=== PATIENT | male | born 1985 | race Caucasian/White ===

== ENCOUNTER → 2016-06-13 | Outpatient (REF) | payer OTHER | LOC: M SMT 13:01 | PROVIDERS: ATTEND Nurse Practitioner Women's Health | DX: N50.819 Testicular pain, unspecified (principal) ==

== ENCOUNTER 2016-06-28 14:09 | Emergency (ER) | payer OTHER ==
--- NOTE | 2016-06-28 15:59 | EDDOCDS ---
Physician Documentation [facility] Name: Will Roman Age: 30 yrs Sex: Male : 1985 Arrival Date: 06/28/2016 Time: 14:09 Bed TR7 Private MD: Fantasma Disposition: 06/28/16 15:48 Discharged to Home/Self Care. Impression: Cervical disc disorder with radiculopathy, unspecified cervical region - AFFECTING LEFT FINGERS. - Condition is Stable. - Discharge Instructions: Cervical Radiculopathy. - Prescriptions for Mobic 7.5 mg Oral Tablet - take 1 tablet by ORAL route once daily take with food; 20 tablet. - Medication Reconciliation, Local Pharmacy Hours form. - Follow up: Emergency Department; When: As needed; Reason: Worsening of conditions. Follow up: Private Physician; When: 2 - 3 days; Reason: Wound/Symptom Recheck, Recheck today's complaints, Continuance of care. - Problem is new. - Symptoms are unchanged. Historical: - Allergies: Ceclor; - Home Meds: 1. none - PMHx: Anxiety; - PSHx: Appendectomy; - Social history: Smoking status: Patient uses tobacco products, current some day smoker. No barriers to communication noted, The patient speaks fluent Occitan, Speaks appropriately for age. - Family history: Not pertinent. - : The pt / caregiver states he / she is not on anticoagulants. Home medication list is obtained from the patient. - Exposure Risk Screening:: None identified. Vital Signs: 06/28 14:12 BP 163 / 85; Pulse 61; Resp 18; Pulse Ox 99% on R/A; Weight 90.72 kg / 200 lbs (R); elp Height 5 ft. 10 in. (177.80 cm) (R); Pain 0/10; 14:12 Body Mass Index 28.70 (90.72 kg, 177.80 cm) elp MDM: 15:33 ECG WITH READING ER PHYS+CARDIAG ordered. EDMS 15:43 ED course: PT STATES HX OF FEW DAYS OF LEFT "FINGER TINGLING" AND LEFT UPPER ARM dt4 "TIGHTNESS" THAT LASTED FOR A FEW MINUTES. STATES HX OF ANXIETY AND HAD AN ANXIETY ATTACK THE FIRST NIGHT HE NOTICED THESE SYMPTOMS. . 15:55 Financial registration complete. lg Signatures: Dispatcher [employer] EDSergio Peck Reg Reg lg Tish-Krish,Radha,RN RN ck1 Jaymie Zhang,RN RN cjh Pallavi Celestin PA-C PA-C dt4 MTDD
--- NOTE | 2016-06-28 15:59 | EDDOCDS ---
Nurse's Notes [facility] Name: Will Roman Age: 30 yrs Sex: Male : 1985 Arrival Date: 06/28/2016 Time: 14:09 Bed TR7 Private MD: Fantasma Diagnosis: Cervical disc disorder with radiculopathy, unspecified cervical region-AFFECTING LEFT FINGERS Presentation: 06/28 14:17 Presenting complaint: Patient states: tingling to left hand with tightness to left arm. ck1 Reports short episode of left chest pain 3 nights ago, states "anxiety attack" at the time. Adult Sepsis Screening: The patient does not have new or worsening altered mentation. Patient's respiratory rate is less than 22. Systolic blood pressure is greater than 100. Patient has a qSOFA score of 0- Negative Sepsis Screen. Suicide/Homicide risk assessment- the patient denies having any suicidal and/or homicidal ideations and does not present with any other emotional, behavioral or mental health complaints. Status: Patient is not a clinical services assistant or dependent. Transition of care: patient was not received from another setting of care. 14:17 Acuity: JOEY Level 4 ck1 14:17 Method Of Arrival: Walkin/Carried/Asstd ck1 Triage Assessment: 14:20 General: Appears in no apparent distress, comfortable, Behavior is appropriate for age, ck1 cooperative. Pain: Denies pain. HIV screening NA for this visit Offered previously. Neurological: Level of Consciousness is awake, alert, obeys commands, Oriented to person, place, time. Cardiovascular: Chest pain is denied. Respiratory: No deficits noted. Derm: Skin is intact, is healthy with good turgor, Skin is pink, warm & dry. Musculoskeletal: Range of motion intact in all extremities. Historical: - Allergies: Ceclor; - Home Meds: 1. none - PMHx: Anxiety; - PSHx: Appendectomy; - Social history: Smoking status: Patient uses tobacco products, current some day smoker. No barriers to communication noted, The patient speaks fluent Pashto, Speaks appropriately for age. - Family history: Not pertinent. - : The pt / caregiver states he / she is not on anticoagulants. Home medication list is obtained from the patient. - Exposure Risk Screening:: None identified. Screenin:54 Screening information is obtained from the patient. Fall risk: No risks identified. cj Assistance ADL's: requires no assistance with activities of daily living. Abuse/DV Screen: The patient / caregiver reports he/she is: not in a situation that causes fear, pain or injury. Nutritional screening: No deficits noted. Advance Directives: There is no active DNR order. home support is adequate. Assessment: 15:54 General: Appears in no apparent distress, comfortable, Behavior is appropriate for age, cjh cooperative, assessed by PA. Reviewed discharge instructions with patient, encouraged and answered questions, patient denies further needs. Neurological: Level of Consciousness is awake, alert, Oriented to person, place, time. Respiratory: Airway is patent Respiratory effort is even, unlabored, Respiratory pattern is regular, symmetrical. Derm: Skin is pink, warm & dry. Vital Signs: 14:12 BP 163 / 85; Pulse 61; Resp 18; Pulse Ox 99% on R/A; Weight 90.72 kg (R); Height 5 ft. elp 10 in. (177.80 cm) (R); Pain 0/10; 14:12 Body Mass Index 28.70 (90.72 kg, 177.80 cm) [facility] Vitals: 14:12 Log In Time: June 28, 2016 at 14:10. [facility] ED Course: 14:11 Patient visited by Juliana Schultz PCA. elp 14:11 Fantasma is Private Physician. elp 14:11 Patient moved to Waiting elp 14:12 Patient visited by Juliana Schultz PCA. elp 14:12 Patient moved to Pre RCE gr2 14:19 Triage Initiated ck1 14:58 Patient moved to Triage 3 mlb1 15:11 Pallavi Celestin PA-C [facility]. dt4 15:11 Nahid Parrish MD is Attending Physician. dt4 15:11 Patient visited by Pallavi Celestin PA-C. dt4 15:45 Patient visited by Cristiana Mcknight PCA. rs6 15:45 EKG done. (by ED staff). Reviewed by Pallavi Celestin PA-C. rs6 15:54 The patient / caregiver is instructed regarding the plan of care and ED course. cjh 15:54 No IV's were initiated during this patient's visit. No procedures done that require [facility] assistance. 15:55 Patient moved to TR7 rs6 Order Results: There are currently no results for this order. Outcome: 15:48 Discharge ordered by Provider. dt4 15:54 Discharge Assessment: Patient awake, alert and oriented x 3. No cognitive and/or [facility] functional deficits noted. Patient verbalized understanding of disposition instructions. patient administered narcotics - no. The following High Risk Discharge criteria are identified: None. Discharged to home ambulatory. Condition: good Condition: stable. Discharge instructions given to patient, Instructed on discharge instructions, follow up and referral plans. medication usage, Demonstrated understanding of instructions, medications, Pt was receptive of discharge instructions/ teaching. Prescriptions given X 1. No special radiology studies were completed. Property :Personal belongings accompany Pt. 15:58 [facility]. [facility] Signatures: Elder Mercer RN RN mlb1 Radha Anne,RN RN ck1 Jaymie ZhangRN RN [facility] Faustino Cadena gr2 Juliana Schultz, [employer] SERVICES FIELD SUPERVISOR O[employer] WELL SERVICES FIELD SUPERVISOR elp Pallavi Celestin PA-C PA-C dt4 Cristiana Mcknight, [employer] WELL SERVICES FIELD SUPERVISOR OIL WELL SERVICES FIELD SUPERVISOR rs6 BELLD
--- NOTE | 2016-06-29 08:31 | ECGEPIP ---
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
--- NOTE | 2016-06-30 16:59 | EDDOCDS ---
Physician Documentation [facility] Name: Will Roman Age: 30 yrs Sex: Male : 1985 Arrival Date: 06/28/2016 Time: 14:09 Bed TR7 Private MD: Fantasma Disposition: 06/28/16 15:48 Discharged to Home/Self Care. Impression: Cervical disc disorder with radiculopathy, unspecified cervical region - AFFECTING LEFT FINGERS. - Condition is Stable. - Discharge Instructions: Cervical Radiculopathy. - Prescriptions for Mobic 7.5 mg Oral Tablet - take 1 tablet by ORAL route once daily take with food; 20 tablet. - Medication Reconciliation, Local Pharmacy Hours form. - Follow up: Emergency Department; When: As needed; Reason: Worsening of conditions. Follow up: Private Physician; When: 2 - 3 days; Reason: Wound/Symptom Recheck, Recheck today's complaints, Continuance of care. - Problem is new. - Symptoms are unchanged. Historical: - Allergies: Ceclor; - Home Meds: 1. none - PMHx: Anxiety; - PSHx: Appendectomy; - Social history: Smoking status: Patient uses tobacco products, current some day smoker. No barriers to communication noted, The patient speaks fluent Malay, Speaks appropriately for age. - Family history: Not pertinent. - : The pt / caregiver states he / she is not on anticoagulants. Home medication list is obtained from the patient. - Exposure Risk Screening:: None identified. Vital Signs: 06/28 14:12 BP 163 / 85; Pulse 61; Resp 18; Pulse Ox 99% on R/A; Weight 90.72 kg / 200 lbs (R); elp Height 5 ft. 10 in. (177.80 cm) (R); Pain 0/10; 14:12 Body Mass Index 28.70 (90.72 kg, 177.80 cm) elp MDM: 15:33 ECG WITH READING ER PHYS+CARDIAG ordered. EDMS 15:43 ED course: PT STATES HX OF FEW DAYS OF LEFT "FINGER TINGLING" AND LEFT UPPER ARM dt4 "TIGHTNESS" THAT LASTED FOR A FEW MINUTES. STATES HX OF ANXIETY AND HAD AN ANXIETY ATTACK THE FIRST NIGHT HE NOTICED THESE SYMPTOMS. . 15:55 Financial registration complete. lg 06/29 09:04 [facility] Payment Agreement was scanned into [employer] and attached to record. lg 11:30 T-Sheet-- Draft Copy was scanned into [employer] and attached to record. gb Signatures: Dispatcher [employer] EDMS Ailyn Smith, Reg Reg gb Sergio James, Reg Reg lg Tish-Radha Rutherford,RN RN ck1 Jaymie Zhang,RN RN [facility] Pallavi Celestin PA-C PA-C dt4 The chart was reviewed and I authenticate all verbal orders and agree with the evaluation and treatment provided.Attachments: 09:04 [facility] Payment Agreement lg 11:30 T-Sheet-- Draft Copy gb Chart Complete MTDD
--- NOTE | 2016-06-30 16:59 | EDDOCDS ---
Physician Documentation [facility] Name: Will Roman Age: 30 yrs Sex: Male : 1985 Arrival Date: 06/28/2016 Time: 14:09 Bed TR7 Private MD: Fantasma Disposition: 06/28/16 15:48 Discharged to Home/Self Care. Impression: Cervical disc disorder with radiculopathy, unspecified cervical region - AFFECTING LEFT FINGERS. - Condition is Stable. - Discharge Instructions: Cervical Radiculopathy. - Prescriptions for Mobic 7.5 mg Oral Tablet - take 1 tablet by ORAL route once daily take with food; 20 tablet. - Medication Reconciliation, Local Pharmacy Hours form. - Follow up: Emergency Department; When: As needed; Reason: Worsening of conditions. Follow up: Private Physician; When: 2 - 3 days; Reason: Wound/Symptom Recheck, Recheck today's complaints, Continuance of care. - Problem is new. - Symptoms are unchanged. Historical: - Allergies: Ceclor; - Home Meds: 1. none - PMHx: Anxiety; - PSHx: Appendectomy; - Social history: Smoking status: Patient uses tobacco products, current some day smoker. No barriers to communication noted, The patient speaks fluent Bulgarian, Speaks appropriately for age. - Family history: Not pertinent. - : The pt / caregiver states he / she is not on anticoagulants. Home medication list is obtained from the patient. - Exposure Risk Screening:: None identified. Vital Signs: 06/28 14:12 BP 163 / 85; Pulse 61; Resp 18; Pulse Ox 99% on R/A; Weight 90.72 kg / 200 lbs (R); elp Height 5 ft. 10 in. (177.80 cm) (R); Pain 0/10; 14:12 Body Mass Index 28.70 (90.72 kg, 177.80 cm) elp MDM: 15:33 ECG WITH READING ER PHYS+CARDIAG ordered. EDMS 15:43 ED course: PT STATES HX OF FEW DAYS OF LEFT "FINGER TINGLING" AND LEFT UPPER ARM dt4 "TIGHTNESS" THAT LASTED FOR A FEW MINUTES. STATES HX OF ANXIETY AND HAD AN ANXIETY ATTACK THE FIRST NIGHT HE NOTICED THESE SYMPTOMS. . 15:55 Financial registration complete. lg 06/29 09:04 [facility] Payment Agreement was scanned into [employer] and attached to record. lg 11:30 T-Sheet-- Draft Copy was scanned into [employer] and attached to record. gb Signatures: Dispatcher [employer] EDMS Ailyn Smith, Reg Reg gb Sergio James, Reg Reg lg Tish-Radha Rutherford,RN RN ck1 Jaymie Zhang,RN RN [facility] Pallavi Celestin PA-C PA-C dt4 The chart was reviewed and I authenticate all verbal orders and agree with the evaluation and treatment provided.Attachments: 09:04 [facility] Payment Agreement lg 11:30 T-Sheet-- Draft Copy gb Chart Complete MTDD
--- NOTE | 2016-06-30 16:59 | EDDOCDS ---
Nurse's Notes [facility] Name: Nila Rosenberg Age: 30 yrs Sex: Male : 1985 Arrival Date: 06/28/2016 Time: 14:09 Bed TR7 Private MD: Fantasma Diagnosis: Cervical disc disorder with radiculopathy, unspecified cervical region-AFFECTING LEFT FINGERS Presentation: 06/28 14:17 Presenting complaint: Patient states: tingling to left hand with tightness to left arm. ck1 Reports short episode of left chest pain 3 nights ago, states "anxiety attack" at the time. Adult Sepsis Screening: The patient does not have new or worsening altered mentation. Patient's respiratory rate is less than 22. Systolic blood pressure is greater than 100. Patient has a qSOFA score of 0- Negative Sepsis Screen. Suicide/Homicide risk assessment- the patient denies having any suicidal and/or homicidal ideations and does not present with any other emotional, behavioral or mental health complaints. Status: Patient is not a room service runner or dependent. Transition of care: patient was not received from another setting of care. 14:17 Acuity: JOEY Level 4 ck1 14:17 Method Of Arrival: Walkin/Carried/Asstd ck1 Triage Assessment: 14:20 General: Appears in no apparent distress, comfortable, Behavior is appropriate for age, ck1 cooperative. Pain: Denies pain. HIV screening NA for this visit Offered previously. Neurological: Level of Consciousness is awake, alert, obeys commands, Oriented to person, place, time. Cardiovascular: Chest pain is denied. Respiratory: No deficits noted. Derm: Skin is intact, is healthy with good turgor, Skin is pink, warm & dry. Musculoskeletal: Range of motion intact in all extremities. Historical: - Allergies: Ceclor; - Home Meds: 1. none - PMHx: Anxiety; - PSHx: Appendectomy; - Social history: Smoking status: Patient uses tobacco products, current some day smoker. No barriers to communication noted, The patient speaks fluent Greenlandic, Speaks appropriately for age. - Family history: Not pertinent. - : The pt / caregiver states he / she is not on anticoagulants. Home medication list is obtained from the patient. - Exposure Risk Screening:: None identified. Screenin:54 Screening information is obtained from the patient. Fall risk: No risks identified. cj Assistance ADL's: requires no assistance with activities of daily living. Abuse/DV Screen: The patient / caregiver reports he/she is: not in a situation that causes fear, pain or injury. Nutritional screening: No deficits noted. Advance Directives: There is no active DNR order. home support is adequate. Assessment: 15:54 General: Appears in no apparent distress, comfortable, Behavior is appropriate for age, cjh cooperative, assessed by PA. Reviewed discharge instructions with patient, encouraged and answered questions, patient denies further needs. Neurological: Level of Consciousness is awake, alert, Oriented to person, place, time. Respiratory: Airway is patent Respiratory effort is even, unlabored, Respiratory pattern is regular, symmetrical. Derm: Skin is pink, warm & dry. Vital Signs: 14:12 BP 163 / 85; Pulse 61; Resp 18; Pulse Ox 99% on R/A; Weight 90.72 kg (R); Height 5 ft. elp 10 in. (177.80 cm) (R); Pain 0/10; 14:12 Body Mass Index 28.70 (90.72 kg, 177.80 cm) [facility] Vitals: 14:12 Log In Time: June 28, 2016 at 14:10. [facility] ED Course: 14:11 Patient visited by Juliana Schultz PCA. elp 14:11 Fantasma is Private Physician. elp 14:11 Patient moved to Waiting elp 14:12 Patient visited by Juliana Schultz PCA. elp 14:12 Patient moved to Pre RCE gr2 14:19 Triage Initiated ck1 14:58 Patient moved to Triage 3 mlb1 15:11 Pallavi Celestin PA-C [facility]. dt4 15:11 Nahid Parrish MD is Attending Physician. dt4 15:11 Patient visited by Pallavi Celestin PA-C. dt4 15:45 Patient visited by Cristiana Mcknight PCA. rs6 15:45 EKG done. (by ED staff). Reviewed by Pallavi Celestin PA-C. rs6 15:54 The patient / caregiver is instructed regarding the plan of care and ED course. cjh 15:54 No IV's were initiated during this patient's visit. No procedures done that require [facility] assistance. 15:55 Patient moved to TR7 rs6 01/19 08:35 Patient name changed from Nila\\Eunice\\Gerardo\\S\\Jessie\\S\\ to Nila\\Eunice\\Ezra\\Eunice\\Jessie. EDMS 09:01 EKG-ADULT Returned. EDMS 09:04 [facility] Payment Agreement was scanned into [employer] and attached to record. lg 11:30 T-Sheet-- Draft Copy was scanned into [employer] and attached to record. 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 dt4 15:54 Discharge Assessment: Patient awake, alert and oriented x 3. No cognitive and/or [facility] functional deficits noted. Patient verbalized understanding of disposition instructions. patient administered narcotics - no. The following High Risk Discharge criteria are identified: None. Discharged to home ambulatory. Condition: good Condition: stable. Discharge instructions given to patient, Instructed on discharge instructions, follow up and referral plans. medication usage, Demonstrated understanding of instructions, medications, Pt was receptive of discharge instructions/ teaching. Prescriptions given X 1. No special radiology studies were completed. Property :Personal belongings accompany Pt. 15:58 Patient left the ED. [facility] Signatures: Dispatcher [employer] EDMS Ailyn Smith, Reg Reg gb Sergio James, Reg Reg lg Elder Mercer RN RN mlb1 Radha Anne RN RN ck1 Jaymie ZhangRN RN [facility] Faustino Cadena gr2 Juliana Schultz PCA SEMAPHORE OPERATOR elp Pallavi Celestin, PA-C PA-C dt4 Mcknight, Cristiana, SEMAPHORE OPERATOR SEMAPHORE OPERATOR rs6 Chart Complete MTDD
== END 2016-06-28 15:58 | disposition home or self-care (01) ==
LOC: M ED 14:09
DX: M54.12 Radiculopathy, cervical region (principal); F41.9 Anxiety disorder, unspecified; Z82.49 Family history of ischemic heart disease and other diseases of the circulatory system; Z88.1 Allergy status to other antibiotic agents; F17.210 Nicotine dependence, cigarettes, uncomplicated

== ENCOUNTER → 2016-06-29 | Outpatient (CLI) | payer OTHER ==
--- NOTE | 2016-06-30 03:20 | REP ---
Clinical: Left testicular pain. Technique: Coronado scale and color Doppler evaluation using linear and curved array transducer with color Doppler evaluation. Findings: The testicles and epididymi are relatively normal in contour, size, echogenicity, vascularity and overall appearance/contour. There is no evidence for intratesticular mass lesion, infectious/inflammatory process, with torsion. Incidental note is made of a 2.3 mm right epididymal head cyst. Small bilateral hydroceles are identified (left greater than right) and nonspecific. No obvious varicoceles are identified. Right testicle measures 4.6 x 2.4 x 3.5 cm. Left testicle measures 4.7 x 2.5 x 3.2 cm. Impression: Small bilateral hydroceles and 2.3 mm right epididymal head cyst. Signed by Silas Tellez MD 06/30/2016 03:12 A
== END ==
LOC: M SMT 13:47
PROVIDERS: ATTEND Nurse Practitioner Women's Health
DX: N43.3 Hydrocele, unspecified (principal); N50.3 Cyst of epididymis

== ENCOUNTER 2016-07-17 11:39 | Emergency (ER) | payer OTHER ==
--- NOTE | 2016-07-17 13:05 | REP ---
Left shoulder series: Three views. History: Trauma. Findings: The left glenohumeral and acromioclavicular joints are normally aligned. No erosive change is seen. Periarticular soft tissues are unremarkable. Impression: Negative left shoulder views. Signed by Lupillo Coker MD 07/17/2016 02:35 P
--- NOTE | 2016-07-17 13:24 | EDDOCDS ---
Physician Documentation [facility] Name: Will Roman Age: 30 yrs Sex: Male : 1985 Arrival Date: 07/17/2016 Time: 11:39 Bed I8 / 16 Private MD: Fantasma Disposition: 07/17/16 13:01 Discharged to Home/Self Care. Impression: Pain in left shoulder. - Condition is Stable. - Discharge Instructions: Shoulder Pain. - Medication Reconciliation, Local Pharmacy Hours form. - Follow up: Bruno Rao; When: 2 - 3 days; Reason: Recheck today's complaints. - Problem is new. - Symptoms are unchanged. - Notes: You were seen in the ED for pain in the left shoulder. Xrays showed no acute findings, indication the problem may be soft tissue in nature. You will need to be seen by Orthopedics for further evaluation - please call the number below today to arrange to be seen. Rest and ice the shoulder as needed. You may take Tylenol and Ibuprofen as needed for pain. Return to the ED for any worsening or uncontrolled pain, chest pain, trouble breathing, abdominal pain or any other concerns. Historical: - Allergies: Ceclor; - Home Meds: 1. none - PMHx: Anxiety; - PSHx: Appendectomy; - Social history: Smoking status: Chewing Tobacco No barriers to communication noted, The patient speaks fluent Korean, Speaks appropriately for age. - : The pt / caregiver states he / she is not on anticoagulants. Home medication list is obtained from the patient. - Exposure Risk Screening:: None identified. Vital Signs: 07/17 11:41 BP 131 / 53; Pulse 66; Resp 18; Temp 97.3(O); Pulse Ox 100% on R/A; Weight 90.72 kg / ct3 200 lbs (R); Height 5 ft. 10 in. (177.80 cm) (R); Pain 10/10; 11:41 Body Mass Index 28.70 (90.72 kg, 177.80 cm) ct3 MDM: 12:25 Shoulder, Complete Ordered. EDMS Signatures: Dispatcher [employer] EDMS Daniel Austin MD MD br1 Anitra Cadena RN RN Selena Cervantes RN RN taylor MTDD
--- NOTE | 2016-07-17 13:24 | EDDOCDS ---
Nurse's Notes [facility] Name: Will Roman Age: 30 yrs Sex: Male : 1985 Arrival Date: 07/17/2016 Time: 11:39 Bed I8 / 16 Private MD: Fantasma Diagnosis: Pain in left shoulder Presentation: 07/17 11:50 Presenting complaint: Patient states: pt c/o left shoulder pain, onset of pain ead yesterday morning. denies known injury. reports limited ROM. Adult Sepsis Screening: The patient does not have new or worsening altered mentation. Patient's respiratory rate is less than 22. Systolic blood pressure is greater than 100. Patient has a qSOFA score of 0- Negative Sepsis Screen. Suicide/Homicide risk assessment- the patient denies having any suicidal and/or homicidal ideations and does not present with any other emotional, behavioral or mental health complaints. Status: Patient is not a food services manager or dependent. Transition of care: patient was not received from another setting of care. 11:50 Acuity: JOEY Level 4 ead 11:50 Method Of Arrival: Walkin/Carried/Asstd ead Triage Assessment: 11:52 General: Appears in no apparent distress, Behavior is appropriate for age, cooperative. ead Pain: Location: anterior aspect of left shoulder Pain At worst was 10 out of 10 on a pain scale. HIV screening NA for this visit Offered previously. Respiratory: Airway is patent Respiratory effort is even, unlabored. Derm: Skin is pink, warm & dry. Musculoskeletal: Reports pain in anterior aspect of left shoulder. Historical: - Allergies: Ceclor; - Home Meds: 1. none - PMHx: Anxiety; - PSHx: Appendectomy; - Social history: Smoking status: Chewing Tobacco No barriers to communication noted, The patient speaks fluent Korean, Speaks appropriately for age. - : The pt / caregiver states he / she is not on anticoagulants. Home medication list is obtained from the patient. - Exposure Risk Screening:: None identified. Screenin:19 Screening information is obtained from the patient. Fall risk: No risks identified. jjr Assistance ADL's: requires no assistance with activities of daily living. Abuse/DV Screen: The patient / caregiver reports he/she is: not in a situation that causes fear, pain or injury. Nutritional screening: No deficits noted. Advance Directives: There is no active DNR order. home support is adequate. Assessment: 12:18 General: Appears in no apparent distress, well nourished, well groomed, Behavior is jjr appropriate for age, palpable bump to left biceps movable not tender to the touch, no redness/swelling noted to left arm or shoulder. Musculoskeletal: Range of motion limited in left shoulder Reports pain in anterior aspect of left shoulder. 13:23 General: Appears in no apparent distress. jjr Vital Signs: 11:41 BP 131 / 53; Pulse 66; Resp 18; Temp 97.3(O); Pulse Ox 100% on R/A; Weight 90.72 kg ct3 (R); Height 5 ft. 10 in. (177.80 cm) (R); Pain 10/10; 11:41 Body Mass Index 28.70 (90.72 kg, 177.80 cm) ct3 Vitals: 11:41 Log In Time: July 17, 2016 at 11:38. ct3 ED Course: 11:40 Patient visited by Justyna Guardado PCA. ct3 11:40 Patient moved to Waiting ct3 11:41 Fantasma is Private Physician. ct3 11:42 Patient moved to Pre RCE ct3 11:51 Triage Initiated ead 12:10 Anitra Cadena, RN is Primary Nurse. ml6 12:10 Patient moved to I9 / 22 ml6 12:16 Patient moved to I10 / 23 jmk 12:16 Patient moved to I8 / 16 jmk 12:19 Patient visited by Anitra Cadena, JET. jjr 12:19 The patient / caregiver is instructed regarding the plan of care and ED course. jjr 12:23 Daniel Austin MD is Attending Physician. br1 12:48 Patient visited by Daniel Austin MD. br1 12:59 Bruno Rao is Referral Physician. br1 13:19 Shoulder, Complete Returned. EDMS 13:23 No IV's were initiated during this patient's visit. No procedures done that require jjr assistance. Order Results: Radiology Order: Shoulder, Complete Test: Shoulder, Complete REASON FOR EXAMINATION: Trauma; Left shoulder series: Three views.; ; History: Trauma.; ; Findings: The left glenohumeral and acromioclavicular joints are normally; aligned. No erosive change is seen. Periarticular soft tissues are; unremarkable.; ; Impression:; ; Negative left shoulder views.; ; ; ; ; Unreviewed; Outcome: 13:01 Discharge ordered by Provider. br1 13:23 Discharge Assessment: patient administered narcotics - no. The following High Risk jjr Discharge criteria are identified: None. Discharged to home ambulatory. Condition: stable. Discharge instructions given to patient, Instructed on discharge instructions, follow up and referral plans. Demonstrated understanding of instructions. No special radiology studies were completed. Property sent home with patient. 13:24 Patient left the ED. jjr Signatures: Dispatcher [employer] EDMS Prabhu Lazo,RN RN Daniel Tee MD MD br1 Anitra Cadena RN RN jjr Lowe, Matthew, RN RN ml6 Justyna Guardado, FIRE PILOT FIRE PILOT ct3 Selena Pena RN RN ead MTDD
--- NOTE | 2016-07-19 14:24 | EDDOCDS ---
Physician Documentation [facility] Name: Will Roman Age: 30 yrs Sex: Male : 1985 Arrival Date: 07/17/2016 Time: 11:39 Bed I8 / 16 Private MD: Fantasma Disposition: 07/17/16 13:01 Discharged to Home/Self Care. Impression: Pain in left shoulder. - Condition is Stable. - Discharge Instructions: Shoulder Pain. - Medication Reconciliation, Local Pharmacy Hours form. - Follow up: Bruno Rao; When: 2 - 3 days; Reason: Recheck today's complaints. - Problem is new. - Symptoms are unchanged. - Notes: You were seen in the ED for pain in the left shoulder. Xrays showed no acute findings, indication the problem may be soft tissue in nature. You will need to be seen by Orthopedics for further evaluation - please call the number below today to arrange to be seen. Rest and ice the shoulder as needed. You may take Tylenol and Ibuprofen as needed for pain. Return to the ED for any worsening or uncontrolled pain, chest pain, trouble breathing, abdominal pain or any other concerns. Historical: - Allergies: Ceclor; - Home Meds: 1. none - PMHx: Anxiety; - PSHx: Appendectomy; - Social history: Smoking status: Chewing Tobacco No barriers to communication noted, The patient speaks fluent Italian, Speaks appropriately for age. - : The pt / caregiver states he / she is not on anticoagulants. Home medication list is obtained from the patient. - Exposure Risk Screening:: None identified. Vital Signs: 07/17 11:41 BP 131 / 53; Pulse 66; Resp 18; Temp 97.3(O); Pulse Ox 100% on R/A; Weight 90.72 kg / ct3 200 lbs (R); Height 5 ft. 10 in. (177.80 cm) (R); Pain 10/10; 11:41 Body Mass Index 28.70 (90.72 kg, 177.80 cm) ct3 MDM: 12:25 Shoulder, Complete Ordered. EDMS 13:24 [facility] Payment Agreement was scanned into [employer] and attached to record. jp5 13:24 Financial registration complete. jp5 16:15 T-Sheet-- Draft Copy was scanned into [employer] and attached to record. klr Signatures: Dispatcher [employer] Daniel Aguilar MD MD br1 Anitra Cadnea RN RN Selena CervantesRN RN Aime West jp5 Skyla Vergarar The chart was reviewed and I authenticate all verbal orders and agree with the evaluation and treatment provided.Attachments: 13:24 [facility] Payment Agreement jp5 16:15 T-Sheet-- Draft Copy klr Chart Complete MTDD
--- NOTE | 2016-07-19 14:24 | EDDOCDS ---
Nurse's Notes [facility] Name: Will Roman Age: 30 yrs Sex: Male : 1985 Arrival Date: 07/17/2016 Time: 11:39 Bed I8 / 16 Private MD: Fantasma Diagnosis: Pain in left shoulder Presentation: 07/17 11:50 Presenting complaint: Patient states: pt c/o left shoulder pain, onset of pain ead yesterday morning. denies known injury. reports limited ROM. Adult Sepsis Screening: The patient does not have new or worsening altered mentation. Patient's respiratory rate is less than 22. Systolic blood pressure is greater than 100. Patient has a qSOFA score of 0- Negative Sepsis Screen. Suicide/Homicide risk assessment- the patient denies having any suicidal and/or homicidal ideations and does not present with any other emotional, behavioral or mental health complaints. 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 Transition of care: patient was not received from another setting of care. 11:50 Acuity: JOEY Level 4 ead 11:50 Method Of Arrival: Walkin/Carried/Asstd ead Triage Assessment: 11:52 General: Appears in no apparent distress, Behavior is appropriate for age, cooperative. ead Pain: Location: anterior aspect of left shoulder Pain At worst was 10 out of 10 on a pain scale. HIV screening NA for this visit Offered previously. Respiratory: Airway is patent Respiratory effort is even, unlabored. Derm: Skin is pink, warm & dry. Musculoskeletal: Reports pain in anterior aspect of left shoulder. Historical: - Allergies: Ceclor; - Home Meds: 1. none - PMHx: Anxiety; - PSHx: Appendectomy; - Social history: Smoking status: Chewing Tobacco No barriers to communication noted, The patient speaks fluent Wolof, Speaks appropriately for age. - : The pt / caregiver states he / she is not on anticoagulants. Home medication list is obtained from the patient. - Exposure Risk Screening:: None identified. Screenin:19 Screening information is obtained from the patient. Fall risk: No risks identified. jjr Assistance ADL's: requires no assistance with activities of daily living. Abuse/DV Screen: The patient / caregiver reports he/she is: not in a situation that causes fear, pain or injury. Nutritional screening: No deficits noted. Advance Directives: There is no active DNR order. home support is adequate. Assessment: 12:18 General: Appears in no apparent distress, well nourished, well groomed, Behavior is jjr appropriate for age, palpable bump to left biceps movable not tender to the touch, no redness/swelling noted to left arm or shoulder. Musculoskeletal: Range of motion limited in left shoulder Reports pain in anterior aspect of left shoulder. 13:23 General: Appears in no apparent distress. jjr Vital Signs: 11:41 BP 131 / 53; Pulse 66; Resp 18; Temp 97.3(O); Pulse Ox 100% on R/A; Weight 90.72 kg ct3 (R); Height 5 ft. 10 in. (177.80 cm) (R); Pain 10/10; 11:41 Body Mass Index 28.70 (90.72 kg, 177.80 cm) ct3 Vitals: 11:41 Log In Time: July 17, 2016 at 11:38. ct3 ED Course: 11:40 Patient visited by Justyna Guardado PCA. ct3 11:40 Patient moved to Waiting ct3 11:41 Fantasma is Private Physician. ct3 11:42 Patient moved to Pre RCE ct3 11:51 Triage Initiated ead 12:10 Anitra Cadena, RN is Primary Nurse. ml6 12:10 Patient moved to I9 / 22 ml6 12:16 Patient moved to I10 / 23 jmk 12:16 Patient moved to I8 / 16 jmk 12:19 Patient visited by Anitra Cadena, JET. jjr 12:19 The patient / caregiver is instructed regarding the plan of care and ED course. jjr 12:23 Daniel Austin MD is Attending Physician. br1 12:48 Patient visited by Daniel Austin MD. br1 12:59 Bruno Rao is Referral Physician. br1 13:19 Shoulder, Complete Returned. EDMS 13:23 No IV's were initiated during this patient's visit. No procedures done that require jjr assistance. 13:24 [facility] [place] Agreement was scanned into [employer] and attached to record. jp5 15:35 Patient name changed from Will\S\A\S\Jessie\S\ to Will\S\Gerardo\S\Jessie. [facility] 16:15 T-Sheet-- Draft Copy was scanned into [employer] and attached to record. klr Order Results: Radiology Order: Shoulder, Complete Test: Shoulder, Complete REASON FOR EXAMINATION: Trauma; Left shoulder series: Three views.; ; History: Trauma.; ; Findings: The left glenohumeral and acromioclavicular joints are normally; aligned. No erosive change is seen. Periarticular soft tissues are; unremarkable.; ; Impression:; ; Negative left shoulder views.; ; ; Signed by; Lupillo Coker MD 07/17/2016 02:35 P; Outcome: 13:01 Discharge ordered by Provider. br1 13:23 Discharge Assessment: patient administered narcotics - no. The following High Risk jjr Discharge criteria are identified: None. Discharged to home ambulatory. Condition: stable. Discharge instructions given to patient, Instructed on discharge instructions, follow up and referral plans. Demonstrated understanding of instructions. No special radiology studies were completed. Property sent home with patient. 13:24 Patient left the ED. jjr Signatures: [facility]patcher [facility] ED[facility] Prabhu Lazo,RN RN Daniel Tee MD MD br1 Anitra Cadena, RN RN Chris Thomas, RN RN ml6 Justyna Guardado, RANGE MANAGER RANGE MANAGER ct3 Selena Pena,RN RN Aime West jp5 Skyla Vergara luna Chart Complete MTDD
--- NOTE | 2016-07-19 14:24 | EDDOCDS ---
Physician Documentation [facility] Name: Will Roman Age: 30 yrs Sex: Male : 1985 Arrival Date: 07/17/2016 Time: 11:39 Bed I8 / 16 Private MD: Fantasma Disposition: 07/17/16 13:01 Discharged to Home/Self Care. Impression: Pain in left shoulder. - Condition is Stable. - Discharge Instructions: Shoulder Pain. - Medication Reconciliation, Local Pharmacy Hours form. - Follow up: Bruno Rao; When: 2 - 3 days; Reason: Recheck today's complaints. - Problem is new. - Symptoms are unchanged. - Notes: You were seen in the ED for pain in the left shoulder. Xrays showed no acute findings, indication the problem may be soft tissue in nature. You will need to be seen by Orthopedics for further evaluation - please call the number below today to arrange to be seen. Rest and ice the shoulder as needed. You may take Tylenol and Ibuprofen as needed for pain. Return to the ED for any worsening or uncontrolled pain, chest pain, trouble breathing, abdominal pain or any other concerns. Historical: - Allergies: Ceclor; - Home Meds: 1. none - PMHx: Anxiety; - PSHx: Appendectomy; - Social history: Smoking status: Chewing Tobacco No barriers to communication noted, The patient speaks fluent Macedonian, Speaks appropriately for age. - : The pt / caregiver states he / she is not on anticoagulants. Home medication list is obtained from the patient. - Exposure Risk Screening:: None identified. Vital Signs: 07/17 11:41 BP 131 / 53; Pulse 66; Resp 18; Temp 97.3(O); Pulse Ox 100% on R/A; Weight 90.72 kg / ct3 200 lbs (R); Height 5 ft. 10 in. (177.80 cm) (R); Pain 10/10; 11:41 Body Mass Index 28.70 (90.72 kg, 177.80 cm) ct3 MDM: 12:25 Shoulder, Complete Ordered. EDMS 13:24 [facility] Payment Agreement was scanned into [employer] and attached to record. jp5 13:24 Financial registration complete. jp5 16:15 T-Sheet-- Draft Copy was scanned into [employer] and attached to record. klr Signatures: Dispatcher [employer] Daniel Aguilar MD MD br1 Anitra Cadena RN RN Selena CervantesRN RN Aime West jp5 Skyla Vergarar The chart was reviewed and I authenticate all verbal orders and agree with the evaluation and treatment provided.Attachments: 13:24 [facility] Payment Agreement jp5 16:15 T-Sheet-- Draft Copy klr Chart Complete MTDD
== END 2016-07-17 13:24 | disposition home or self-care (01) ==
LOC: M ED 11:39
DX: M25.512 Pain in left shoulder (principal); F41.9 Anxiety disorder, unspecified; F17.220 Nicotine dependence, chewing tobacco, uncomplicated; Z88.1 Allergy status to other antibiotic agents

== ENCOUNTER → 2016-07-28 | Outpatient (CLI) | payer OTHER ==
--- NOTE | 2016-07-28 15:48 | REP ---
MRI LEFT SHOULDER WITHOUT CONTRAST: 07/28/2016. Comparison: x-ray 07/17/2016. Technique: Sagittal fat suppressed T2, axial MEDIC T2 and fat suppressed T2 with coronal T1 and fat suppressed T2 sequences performed. Clinical history. Shoulder pain. Rule out rotator cuff tear. Findings: The AC joint shows hypertrophic changes but more superiorly than inferiorly only minimal indentation from the AC joint at the musculotendinous junction. There is a larger peripheral acromial spur on the acromion contributing to some bursal surface fraying of the supraspinatus. However, I do not see a full-thickness tear of the supraspinatus tendon retraction of the tendon nor atrophy of its muscle belly. Tiny subchondral cystic area in the greater tuberosity humeral head posteriorly likely related to posterior impingement by the acromion. Tendinosis /tendopathy noted without a tear. The subscapularis tendon is slightly thickened which may reflect some tendinosis/tendinopathy but no tear and no atrophy at the muscle belly. The infraspinatus and teres minor tendons and muscles were intact. No glenohumeral joint effusion. Trace amount of fluid adjacent to the subscapularis. There may be some undermining of the anterior labrum and antrum margin of the superior labrum, but this is difficult to confirm in the absence of a joint effusion. I see no fluid in the subcoracoid bursa. The bony coracoid was intact. The coracoclavicular and coracohumeral ligaments were intact. Spinal glenoid notch shows no fluid collection or mass. Impression: 1. Peripheral acromial spur with bursal surface fraying, tendinosis/tendinopathy of the supraspinatus without full-thickness tear, retraction of the tendon or atrophy of the muscle belly. 2. Subscapularis tendinosis/tendinopathy without a definite full-thickness tear. Likewise the muscle belly was intact as are the tendons and muscle bellies of the infraspinatus and teres minor. 3. Biceps tendon is well seated in its groove. The proximal course of the tendon grossly intact and the coracoclavicular and coracohumeral ligaments intact. 4. Question some labral irregularity anterior labrum but difficult to confirm in the absence of joint effusion. Signed by Ganesh Collier MD 07/28/2016 04:57 P
== END ==
LOC: M RAD 12:39
PROVIDERS: ATTEND Orthopaedic Surgery
DX: M25.712 Osteophyte, left shoulder (principal); M75.82 Other shoulder lesions, left shoulder

== ENCOUNTER 2016-08-14 10:53 | Emergency (ER) | payer OTHER ==
[~2016-08-14] VITALS: Ht 177.8 cm; Wt 90.7 kg
[2016-08-14] MEDS ORDERED: CLINDAMYCIN PO (11:09)
[2016-08-14] MEDS ORDERED: NAPROXEN 250 MG TAB PO ONE (16:00)
[2016-08-14 16:28] LABS: MEAN CORPUSCULAR HEMOGLOBIN 30.3 pg (27.0-33.0); MEAN CORPUSCULAR VOLUME 84.1 fl (80.0-96.0); WHITE BLOOD COUNT 8.8 K/mm3 (4.0-10.0)
[2016-08-14 16:53] LABS: ALBUMIN 4.8 GM/DL (3.2-5.2); ALKALINE PHOSPHATASE 60 U/L (45-117); ALT/SGPT 41 U/L (12-78); ANION GAP 10 MEQ/L (8-16); AST/SGOT 23 U/L (15-37); BILIRUBIN,TOTAL 0.8 MG/DL (0.2-1.0); BLOOD UREA NITROGEN 11 MG/DL (7-18); CALCIUM LEVEL 9.5 MG/DL (8.5-10.1); CARBON DIOXIDE LEVEL 28 MEQ/L (21-32); CHLORIDE LEVEL 101 MEQ/L (98-107); CREATININE FOR GFR 0.85 MG/DL (0.70-1.30); GLOMERULAR FILTRATION RATE > 60.0 (>60); GLUCOSE, FASTING 104 MG/DL (70-105); SODIUM LEVEL 139 MEQ/L (136-145)
[2016-08-14] MEDS ORDERED: ZANA4CAP PO (17:10)
[2016-08-14] MEDS ORDERED: MOBI7.5T10 PO (17:11)
[2016-08-14 17:12] VITALS: BP 147/81
--- NOTE | 2016-08-14 20:43 | ECGEPIP ---
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
== END 2016-08-14 17:19 | disposition home or self-care (01) ==
LOC: M ED 16:02
DX: F41.9 Anxiety disorder, unspecified (principal); M79.1 Myalgia; Z90.89 Acquired absence of other organs; Z88.1 Allergy status to other antibiotic agents

== ENCOUNTER → 2016-08-24 | Outpatient (CLI) | payer OTHER ==
[~2016-08-24] MED LIST: CLINDAMYCIN PO; MOBI7.5T10 PO; ZANA4CAP PO
[2016-08-24 21:06] LABS: BASO % 0.3 % (0.0-1.0); EOS # 0.1 K/mm3 (0.0-0.50); EOS % 0.8 % (0.0-3.0); LARGE UNSTAINED CELL # 0.1 K/mm3 (0.0-0.4); LARGE UNSTAINED CELL % 0.8 % (0.0-4.0); LYMPH # 2.1 K/mm3 (1.5-4.5); LYMPH % 23.4 % (24.0-44.0); MEAN CORPUSCULAR HEMOGLOBIN 30.1 pg (27.0-33.0); MEAN CORPUSCULAR HGB CONC 34.7 g/dl (32.0-36.5); MEAN CORPUSCULAR VOLUME 86.7 fl (80.0-96.0); MONO # 0.4 K/mm3 (0.0-0.8); NEUTROPHILS # 5.9 K/mm3 (1.8-7.7); NEUTROPHILS % 69.6 % (36.0-66.0); PLATELET COUNT, AUTOMATED 248 k/mm3 (150-450); RED CELL DISTRIBUTION WIDTH 12.4 % (11.5-14.5); WHITE BLOOD COUNT 8.5 K/mm3 (4.0-10.0)
== END ==
LOC: M WUC 16:24
PROVIDERS: ATTEND Physician Assistant
DX: J02.9 Acute pharyngitis, unspecified (principal)

== ENCOUNTER → 2017-05-02 | Outpatient (CLI) | payer OTHER ==
[~2017-05-02] MED LIST changes: +MOBI4TAB PO; -MOBI7.5T10 PO
--- NOTE | 2017-05-02 18:04 | REP ---
Clinical: Contusion. Technique: AP, lateral, bilateral oblique views of the right first digit. Findings: No obvious acute fracture or dislocation. Skeletal structures, joint spaces, and surrounding soft tissues appear normal. Impression: No acute fracture or dislocation. Signed by Silas Tellez MD 05/02/2017 05:55 P
== END ==
LOC: M WUC 17:36
PROVIDERS: ATTEND Physician Assistant
DX: S60.011A Contusion of right thumb without damage to nail, initial encounter (principal); X58.XXXA Exposure to other specified factors, initial encounter; Y92.89 Other specified places as the place of occurrence of the external cause; Y93.89 Activity, other specified; Y99.8 Other external cause status

== ENCOUNTER → 2017-05-02 | Outpatient (CLI) | payer OTHER | LOC: M WUC 17:33 | PROVIDERS: ATTEND Physician Assistant | DX: S60.011A Contusion of right thumb without damage to nail, initial encounter (principal); X58.XXXA Exposure to other specified factors, initial encounter; Y92.89 Other specified places as the place of occurrence of the external cause; Y93.89 Activity, other specified; Y99.8 Other external cause status ==

== ENCOUNTER 2018-05-10 12:02 | Emergency (ER) | payer OTHER | END 2018-05-10 13:12 | disposition home or self-care (01) | LOC: M ED 12:02 | DX: H65.02 Acute serous otitis media, left ear (principal); H69.92 Unspecified Eustachian tube disorder, left ear; Z79.899 Other long term (current) drug therapy; Z88.1 Allergy status to other antibiotic agents | CPT/HCPCS: 99282 ==

== ENCOUNTER 2018-08-25 14:05 | Emergency (ER) | payer OTHER ==
[~2018-08-25] VITALS: Ht 177.8 cm; Wt 90.9 kg
[~2018-08-25 14:05] MED LIST changes: +AFRI0.056; +ALLE12TA31 PO; +DOXY100C37; +FLON1SPR NARES; +NEOM1SOL13
[2018-08-25] MEDS ORDERED: NAPR-50 PO (16:26)
[2018-08-25] MEDS ORDERED: CYCL10TA PO (16:26)
[2018-08-25 16:30] VITALS: BP 129/68
--- NOTE | 2018-08-26 07:01 | REP ---
LUMBAR SPINE, FIVE VIEWS: HISTORY: Back pain. There is no acute fracture or subluxation. The intervertebral discs are normal in height. The facet joints are normal in appearance. IMPRESSION: There is no acute fracture or subluxation. Electronically Signed by Bladimir Olivares MD 08/26/2018 07:28 A
== END 2018-08-25 16:37 | disposition home or self-care (01) ==
LOC: M ED 14:05
DX: M54.16 Radiculopathy, lumbar region (principal); F41.9 Anxiety disorder, unspecified; Z88.1 Allergy status to other antibiotic agents; Z87.891 Personal history of nicotine dependence

== ENCOUNTER 2021-03-24 14:38 | Emergency (ER) | payer MEDICAID, OTHER, SELFPAY ==
[~2021-03-24] VITALS: Ht 177.8 cm; Wt 98.8 kg
[2021-03-24 14:38] VITALS: BP 129/81
[~2021-03-24 14:38] MED LIST changes: +CYCL-707 PO; -DOXY100C37; +DOXY1CAP62; +NAPR-837 PO
--- OUTSIDE RECORDS SUMMARY | 2021-03-24 14:49 | CCD ---
Author Organization Unknown Address [address] [place] [address] Phone [phone] Care Team Providers Care [employer] Salesperson Name Role Phone Will Golden Unavailable Unavailable Allergies Code Code System Name Reaction Severity Status Onset 723 RxNorm Amoxicillin Active 05/07/2019 Ceclor Active 05/07/2019 Medications Name Status Start Date Stop Date doxycycline monohydrate 100 mg capsule TK 1 C PO BID FOR 7 DAYS Completed 04/12/2020 Zubsolv 8.6 mg-2.[address] one under the tongue every day mdd1 Active Not available Problems Name Status Onset Date Source Nondependent Opioid Abuse in Remission Active 9 History Acute Maxillary Sinusitis Active 05/21/2019 Histor y Nasal Congestion Active 10/15/2019 History Pain of Left Shoulder Joint Active 02/03/2020 Hist ory Procedures Date Name Performed by Appendectomy Information not avai lable Notes: Appendectomy Results Lab Results Date Name Specimen Result Interpretation Description Value Range Status Address 01/25/2021 Drug of Abuse Panel, Urine No observation recorded. [facility] (Lab): [address], [place] 12/28/2020 Drug of Abuse Panel, Urine No observation recorded. [facility] (Lab): [address], [place] 09/27/2020 Drug of Abuse Panel, Urine Urine No observation recorded. [facility] (Lab): [address], [place] 08/09/2020 Drug of Abuse Panel, Urine Urine No observation recorded. [facility] (Lab): [address], [place] 07/12/2020 Drug of Abuse Panel, Urine Urine No observation recorded. [facility] (Lab): [address], [place] Drug of Abuse Panel, Urine Urine No observation rec orded. [facility] (Lab): [address], [place] Past Encounters 02/23/2021 Nondependent Opioid Abuse in Remission; Tobacco User Will Golden MD: [address] [place] [phone], Ph. 01/25/2021 Nondependent Opioid Abuse in Remission; Tobacco User Will Golden MD: [address] [place] [phone], Ph. 12/28/2020 Nondependent Opioid Abuse in Remission; Tobacco User Will Golden MD: [address] [place] [address], Ph. 11/29/2020 Nondependent Opioid Abuse in Remission Will Golden MD: [address] [place] [address], Ph. 11/01/2020 Nondependent Opioid Abuse in Remission Will Golden MD: [address] [place] [phone], Ph. 09/27/2020 Nondependent Opioid Abuse in Remission Will Golden MD: [address] [place] [phone], Ph. 08/09/2020 Nondependent Opioid Abuse in Remission Will Golden MD: [address] [place] [phone], Ph. 07/12/2020 Nondependent Opioid Abuse in Remission Will Golden MD: [address] [place] [phone], Ph. 06/14/2020 Nondependent Opioid Abuse in Remission Will Golden MD: [address] [place] [phone], Ph. 05/10/2020 Nondependent Opioid Abuse in Remission Will Golden MD: [address] [place] [phone], Ph. 04/12/2020 Nondependent Opioid Abuse in Remission Will Golden MD: [address] [place] [phone], Ph. Social History Tobacco Smoking Status Light Tobacco Smoker (1/4 pack per da y) Notes: 1-2 cigs Vaccine List Notes: Pt doesnt want flu vaccine. Plan of Care Reminders Provider Appointments None recorded. Lab None recorded. Referral None recorded. Procedures None recorded. Surgeries None recorded. Imaging None recorded. Vitals 02/23/2021 04:00PM MAT Height Weight BMI Blood Pressure 70 in 212 lbs 4 oz 30.5 kg/m2 116/77 mm[Hg] 01/25/2021 03:00PM MAT Height Weight BMI Blood Pressure 70 in 215 lbs 4 oz 30.9 kg/m2 126/79 mm[Hg] 12/28/2020 03:00PM MAT Height Weight BMI Blood Pressure 70 in 210 lbs 8 oz 30.2 kg/m2 144/75 mm[Hg] 11/01/2020 03:20PM MAT Height Weight BMI Blood Pressure 70 in 207 lbs 16 oz 29.8 kg/m2 120/84 mm[Hg] 09/27/2020 09:40AM MAT Height Weight BMI Blood Pressure 70 in 220 lbs 6 oz 31.6 kg/m2 134/78 mm[Hg] 08/09/2020 10:40AM MAT Height Weight BMI Blood Pressure 70 in 223 lbs 16 oz 32.1 kg/m2 126/85 mm[Hg] 07/12/2020 10:20AM MAT Height Weight BMI Blood Pressure 70 in 223 lbs 16 oz 32.1 kg/m2 124/69 mm[Hg] 06/14/2020 10:20AM MAT Height Weight BMI Blood Pressure 70 in 224 lbs 16 oz 32.3 kg/m2 129/82 mm[Hg] 05/10/2020 09:40AM MAT Height Weight BMI Blood Pressure 70 in 222 lbs 6.4 oz 31.9 kg/m2 114/76 mm[Hg ] 04/12/2020 02:40PM MAT Height Weight BMI 70 in 223 lbs 32 kg/m2 03/02/2020 Height Weight BMI Blood Pressure 70 in 215 lbs 12.8 oz 31.08 kg/m2 120/82 mm[H g] 02/03/2020 Height Weight BMI Blood Pressure 70 in 242 lbs 2.08 oz 34.87 kg/m2 114/73 mm[H g] 01/06/2020 Height Weight BMI Blood Pressure 70 in 216 lbs 31.10 kg/m2 118/71 mm[Hg] 12/11/2019 Height Weight BMI Blood Pressure 70 in 216 lbs 31.10 kg/m2 123/76 mm[Hg] 11/13/2019 Height Weight BMI Blood Pressure 70 in 214 lbs 30.82 kg/m2 122/71 mm[Hg] 10/15/2019 Height Weight BMI Blood Pressure 70 in 211 lbs 4 oz 30.42 kg/m2 121/85 mm[Hg] 08/20/2019 Height Weight BMI Blood Pressure 70 in 216 lbs 6.4 oz 31.16 kg/m2 118/80 mm[Hg ] 07/23/2019 Height Weight BMI Blood Pressure 70 in 227 lbs 32.69 kg/m2 125/74 mm[Hg] 06/25/2019 Height Weight BMI Blood Pressure 70 in 226 lbs 32.54 kg/m2 129/90 mm[Hg] 05/28/2019 Height Weight BMI Blood Pressure 70 in 227 lbs 2.08 oz 32.71 kg/m2 122/73 mm[H g] 05/21/2019 Height Weight BMI Blood Pressure 70 in 223 lbs 32.11 kg/m2 131/82 mm[Hg] 05/14/2019 Height Weight BMI Blood Pressure 70 in 223 lbs 4.96 oz 32.16 kg/m2 136/80 mm[H g] 05/07/2019 Height Weight BMI Blood Pressure 70 in 218 lbs 6.08 oz 31.45 kg/m2 126/82 mm[H g]
--- OUTSIDE RECORDS SUMMARY | 2021-03-24 14:49 | CCD ---
Author Organization Unknown Address [address] [place] [address] Phone [phone] Care Team Providers Care Transportation Lead Name Role Phone Will Golden Unavailable Unavailable Allergies Code Code System Name Reaction Severity Status Onset 723 RxNorm Amoxicillin Active 05/07/20 19 Ceclor Active 05/07/2019 Medications Name Status Start [...] Result Interpretation Description Value Range Status Address 09/27/2020 Drug of Abuse Panel, Urine Urine [...] [address], [place] Past Encounters 12/28/2020 Nondependent Opioid Abuse in Remission; Tobacco User Will Golden MD: [address] [place] [address], Ph. 11/29/2020 Nondependent Opioid Abuse in Remission Will Golden MD: [address] [place] [address], Ph. 11/01/2020 Nondependent Opioid Abuse in Remission Will Golden MD: [address] [place] [address], Ph. 09/27/2020 Nondependent Opioid Abuse in Remission Will Golden MD: [address] [place] [phone], Ph. 08/09/2020 Nondependent Opioid Abuse in Remission Will Golden MD: [address] [place] [address], Ph. 07/12/2020 Nondependent Opioid Abuse in Remission Will Golden MD: [address] [place] [phone], Ph. 06/14/2020 Nondependent Opioid Abuse in Remission Will Golden MD: [address] [place] [phone], Ph. 05/10/2020 Nondependent Opioid Abuse in Remission Will Golden MD: [address] [place] [phone], Ph. 04/12/2020 Nondependent Opioid Abuse in Remission Will Golden MD: [address] [place] [phone], Ph. Social History Tobacco Smoking Status Light Tobacco Smoker (1/ PPD) Notes: 1-2 cigs Vaccine List Notes: Pt doesnt want flu vaccine. Plan of Care Reminders Provider Appointments None recorded. Lab None recorded. Referral None recorded. Procedures None recorded. Surgeries None recorded. Imaging None recorded. Vitals 12/28/2020 03:00PM MAT Height Weight BMI Blood [...]
--- OUTSIDE RECORDS SUMMARY | 2021-03-24 14:49 | CCD ---
Author Organization Unknown Address [address] [place] [address] Phone [phone] Care Team Providers Care Transit Mechanic Name Role Phone Will Golden Unavailable Unavailable [...] Result Interpretation Description Value Range Status Address 12/28/2020 Drug of Abuse Panel, Urine No [...] [address], [place] Past Encounters 01/25/2021 Nondependent Opioid Abuse in Remission; Tobacco User Will Golden MD: [address] [place] [address], Ph. 12/28/2020 Nondependent Opioid Abuse in Remission; Tobacco User Will Golden MD: [address] [place] [phone], Ph. 11/29/2020 Nondependent Opioid Abuse in Remission Will Golden MD: [address] [place] [phone], Ph. 11/01/2020 Nondependent Opioid Abuse in Remission Will Golden MD: [address] [place] [phone], Ph. 09/27/2020 Nondependent Opioid Abuse in Remission Will Golden MD: [address] [place] [phone], Ph. 08/09/2020 Nondependent Opioid Abuse in Remission Will Golden MD: [address] [place] [phone], Ph. 07/12/2020 Nondependent Opioid Abuse in Remission Will Golden MD: [address] [place] [phone], Ph. 06/14/2020 Nondependent Opioid Abuse in Remission Will Golden MD: [address] [place] [phone], Ph. 05/10/2020 Nondependent Opioid Abuse in Remission Will Golden MD: [address] [place] [phone], Ph. 04/12/2020 Nondependent Opioid Abuse in Remission Will Golden MD: [address] [place] [phone], Ph. Social History Tobacco Smoking Status Light Tobacco Smoker (1/4 pack per da y) Notes: 1-2 cigs Vaccine List Notes: Pt doesnt want flu vaccine. Plan of Care Reminders Provider Appointments None recorded. Lab None recorded. Referral None recorded. Procedures None recorded. Surgeries None recorded. Imaging None recorded. Vitals 01/25/2021 03:00PM MAT Height Weight BMI Blood [...]
--- OUTSIDE RECORDS SUMMARY | 2021-03-24 14:50 | CCD ---
Author Author [facility] Address Unknown Phone Unavailable Care Team Providers Care Online Editor Name Role Phone Marie Golden MD Unavailable Unavailable Marie Golden MD Unavailable Unavailable Marie Golden MD Unavailable Unavailable Marie Golden MD Unavailable Unavailable Marie Golden MD Unavailable Unavailable Marie Golden MD Unavailable Unavailable Marie Golden MD Unavailable Unavailable Marie Golden MD Unavailable Unavailable Marie Golden MD Unavailable Unavailable Marie Golden MD Unavailable Unavailable Marie Golden MD Unavailable Unavailable Marie Golden MD Unavailable Unavailable Marie Golden MD Unavailable Unavailable Marie Golden MD Unavailable Unavailable Marie Golden MD Unavailable Unavailable Marie Golden MD Unavailable Unavailable Marie Golden MD Unavailable Unavailable Marie Golden MD Unavailable Unavailable Marie Golden MD Unavailable Unavailable Marie Golden MD Unavailable Unavailable Marie Golden MD Unavailable Unavailable Marie Golden MD Unavailable Unavailable Marie Golden MD Unavailable Unavailable Marie Golden MD Unavailable Unavailable Marie Golden MD Unavailable Unavailable Marie Golden MD Unavailable Unavailable Marie Golden MD Unavailable Unavailable Marie Golden MD Unavailable Unavailable Marie Golden MD Unavailable Unavailable Marie Golden MD Unavailable Unavailable Marie Golden MD Unavailable Unavailable Marie Golden MD Unavailable Unavailable Marie Golden MD Unavailable Unavailable Marie Golden MD Unavailable Unavailable Marie Golden MD Unavailable Unavailable Marie Golden MD Unavailable Unavailable Marie Golden MD Unavailable Unavailable Marie Golden MD Unavailable Unavailable Marie Golden MD Unavailable Unavailable Mraie Golden MD Unavailable Unavailable Marie Golden MD Unavailable Unavailable Marie Golden MD Unavailable Unavailable Marie Golden MD Unavailable Unavailable Marie Golden MD Unavailable Unavailable Marie Golden MD Unavailable Unavailable Marie Golden MD Unavailable Unavailable Marie Golden MD Unavailable Unavailable Marie Golden MD Unavailable Unavailable Marie Golden MD Unavailable Unavailable Marie Golden MD Unavailable Unavailable Marie Golden MD Unavailable Unavailable Marie Golden MD Unavailable Unavailable Marie Golden MD Unavailable Unavailable Marie Golden MD Unavailable Unavailable Marie Golden MD Unavailable Unavailable Marie Golden MD Unavailable Unavailable Marie Golden MD Unavailable Unavailable Marie Golden MD Unavailable Unavailable Marie Golden MD Unavailable Unavailable Marie Golden MD Unavailable Unavailable Marie Golden MD Unavailable Unavailable Marie Golden MD Unavailable Unavailable Marie Golden MD Unavailable Unavailable Marie Golden MD Unavailable Unavailable Marie Golden MD Unavailable Unavailable Marie Golden MD Unavailable Unavailable Marie Golden MD Unavailable Unavailable Marie Golden MD Unavailable Unavailable Marie Golden MD Unavailable Unavailable Marie Golden MD Unavailable Unavailable Marie Golden MD Unavailable Unavailable Marie Goledn MD Unavailable Unavailable Marie Golden MD Unavailable Unavailable Marie Golden MD Unavailable Unavailable Marie Golden MD Unavailable Unavailable Marie Golden MD Unavailable Unavailable Marie Golden MD Unavailable Unavailable Marie Golden MD Unavailable Unavailable Marie Golden MD Unavailable Unavailable Marie Golden MD Unavailable Unavailable Marie Golden MD Unavailable Unavailable Marie Golden MD Unavailable Unavailable Marie Golden MD Unavailable Unavailable Marie Golden MD Unavailable Unavailable Marie Golden MD Unavailable Unavailable Marie Golden MD Unavailable Unavailable Marie Golden MD Unavailable Unavailable Marie Golden MD Unavailable Unavailable Marie Golden MD Unavailable Unavailable Marie Golden MD Unavailable Unavailable Marie Golden MD Unavailable Unavailable Marie Golden MD Unavailable Unavailable Marie Golden MD Unavailable Unavailable Marie Golden MD Unavailable Unavailable Marie Golden MD Unavailable Unavailable Marie Golden MD Unavailable Unavailable Marie Golden MD Unavailable Unavailable Marie Golden MD Unavailable Unavailable Marie Golden MD Unavailable Unavailable Marie Golden MD Unavailable Unavailable Marie Golden MD Unavailable Unavailable Marie Golden MD Unavailable Unavailable Marie Golden MD Unavailable Unavailable Marie Golden MD Unavailable Unavailable Marie Golden MD Unavailable Unavailable Marie Golden MD Unavailable Unavailable Marie Golden MD Unavailable Unavailable Marie Golden MD Unavailable Unavailable Marie Golden MD Unavailable Unavailable Marie Golden MD Unavailable Unavailable Marie Golden MD Unavailable Unavailable Marie Golden MD Unavailable Unavailable Marie Golden MD Unavailable Unavailable Marie Golden MD Unavailable Unavailable Marie Golden MD Unavailable Unavailable Marie Golden MD Unavailable Unavailable Marie Golden MD Unavailable Unavailable Marie Golden MD Unavailable Unavailable Marie Golden MD Unavailable Unavailable Marie Golden MD Unavailable Unavailable Marie Golden MD Unavailable Unavailable Marie Golden MD Unavailable Unavailable Marie Golden MD Unavailable Unavailable Marie Golden MD Unavailable Unavailable Marie Golden MD Unavailable Unavailable Marie Golden MD Unavailable Unavailable Marie Golden MD Unavailable Unavailable Marie Golden MD Unavailable Unavailable Marie Golden MD Unavailable Unavailable Marie Golden MD Unavailable Unavailable Marie Golden MD Unavailable Unavailable Marie Golden MD Unavailable Unavailable Marie Golden MD Unavailable Unavailable Marie Golden MD Unavailable Unavailable Marie Golden MD Unavailable Unavailable Marie Golden MD Unavailable Unavailable Marie Golden MD Unavailable Unavailable Marie Golden MD Unavailable Unavailable Marie Golden MD Unavailable Unavailable Marie Golden MD Unavailable Unavailable Marie Golden MD Unavailable Unavailable Marie Golden MD Unavailable Unavailable Marie Golden MD Unavailable Unavailable Marie Golden MD Unavailable Unavailable Marie Golden MD Unavailable Unavailable Marie Golden MD Unavailable Unavailable Marie Golden MD Unavailable Unavailable Marie Golden MD Unavailable Unavailable Marie Golden MD Unavailable Unavailable Marie Golden MD Unavailable Unavailable Marie Golden MD Unavailable Unavailable Marie Golden MD Unavailable Unavailable Marie Golden MD Unavailable Unavailable Marie Golden MD Unavailable Unavailable Marie Golden MD Unavailable Unavailable Marie Golden MD Unavailable Unavailable Marie Golden MD Unavailable Unavailable Marie Golden MD Unavailable Unavailable Marie Golden MD Unavailable Unavailable Marie Golden MD Unavailable Unavailable Marie Golden MD Unavailable Unavailable Marie Golden MD Unavailable Unavailable Marie Golden MD Unavailable Unavailable Marie Golden MD Unavailable Unavailable Marie Golden MD Unavailable Unavailable Marie Golden MD Unavailable Unavailable Marie Golden MD Unavailable Unavailable Marie Golden MD Unavailable Unavailable Marie Golden MD Unavailable Unavailable Marie Golden MD Unavailable Unavailable Marie Golden MD Unavailable Unavailable Marie Golden MD Unavailable Unavailable Marie Golden MD Unavailable Unavailable Marie Golden MD Unavailable Unavailable Marie Golden MD Unavailable Unavailable Marie Golden MD Unavailable Unavailable Marie Golden MD Unavailable Unavailable Marie Golden MD Unavailable Unavailable Marie Golden MD Unavailable Unavailable Marie Golden MD Unavailable Unavailable Marie Golden MD Unavailable Unavailable Marie Golden MD Unavailable Unavailable Marie Golden MD Unavailable Unavailable Marie Golden MD Unavailable Unavailable Marie Golden MD Unavailable Unavailable Marie Golden MD Unavailable Unavailable Re-disclosure Warning The records that you are about to access may contain information from federally-assisted alcohol or drug abuse programs. If such information is present, then the following federally mandated warning applies: This information has been disclosed to you from records protected by federal confidentiality rules (42 CFR part 2). The federal rules prohibit you from making any further disclosure of this information unless further disclosure is expressly permitted by the written consent of the person to whom it pertains or as otherwise permitted by 42 CFR part 2. A general authorization for the release of medical or other information is NOT sufficient for this purpose. The Federal rules restrict any use of the information to criminally investigate or prosecute any alcohol or drug abuse patient.The records that you are about to access may contain highly sensitive health information, the redisclosure of which is protected by Article 27-F of the [facility] Public Health law. If you continue you may have access to information: Regarding HIV / AIDS; Provided by facilities licensed or operated by the [facility] Office of Mental Health; or Provided by the [facility] Office for People With Developmental Disabilities. If such information is present, then the following [facility] mandated warning applies: This information has been disclosed to you from confidential records which are protected by state law. State law prohibits you from making any further disclosure of this information without the specific written consent of the person to whom it pertains, or as otherwise permitted by law. Any unauthorized further disclosure in violation of state law may result in a fine or shelter sentence or both. A general authorization for the release of medical or other information is NOT sufficient authorization for further disc losure. Family History Family Member Name Family Member Gender Family Member Status Date o f Status Description Data Source(s) Unknown Unknown Problem [facility] ([facility]) Unknown Female Problem MEDENT ([facility]) Unknown Female Problem [facility] ([facility]) twice Unknown Female Problem [facility] ([facility]) Encounters Encounter Providers Location Date Indications Data Source(s ) Will Golden MD: [address] [place] [address], Ph. Attender: Will Golden MD [facility] Medical 02/23/2021 12:00:00 AM EDT [place] ([facility]) Will Golden MD: [address] [place] [address], Ph. Attender: Will Golden MD [facility] Medical 01/25/2021 12:00:00 AM EDT [facility] ([facility]) Will Golden MD: [address] [place] [address], Ph. Attender: Will Golden MD [facility] Medical 01/25/2021 12:00:00 AM EDT [facility] ([facility]) Will Golden MD: [address] [place] [address], Ph. Attender: Will Golden MD [facility] Medical 12/28/2020 12:00:00 AM EDT [facility] ([facility]) Will Golden MD: [address] [place] [address], Ph. Attender: Will Golden MD [facility] Medical 12/28/2020 12:00:00 AM EDT [facility] ([facility]) Will Golden MD: [address] [place] [address], Ph. Attender: Will Golden MD [facility] Medical 12/28/2020 12:00:00 AM EDT [facility] ([facility]) Will Golden MD: [address] [place] [address], Ph. Attender: Will Golden MD [facility] Medical 11/29/2020 12:00:00 AM EDT [facility] ([facility]) Will Golden MD: [address] [place] [address], Ph. Attender: Will Golden MD [facility] Medical 11/29/2020 12:00:00 AM EDT [facility] ([facility]) Will Golden MD: [address] [place] [address], Ph. Attender: Will Golden MD [facility] Medical 11/29/2020 12:00:00 AM EDT [facility] ([facility]) Will Golden MD: [address] [place] [address], Ph. Attender: Will Golden MD [facility] Medical 11/01/2020 12:00:00 AM EDT [facility] ([facility]) Will Golden MD: [address] [place] [address], Ph. Attender: Will Golden MD [facility] Medical 11/01/2020 12:00:00 AM EDT [facility] ([facility]) Will Golden MD: [address] [place] [address], Ph. Attender: Will Golden MD [facility] Medical 11/01/2020 12:00:00 AM EDT [facility] ([facility]) Will Golden MD: [address] [place] [address], Ph. Attender: Will Golden MD [facility] Medical 11/01/2020 12:00:00 AM EDT [facility] ([facility]) Will Golden MD: [address] [place] [address], Ph. Attender: Will Golden MD [facility] Medical 09/27/2020 12:00:00 AM EDT [facility] ([facility]) Will Golden MD: [address] [place] [address], Ph. Attender: Will Golden MD [facility] Medical 09/27/2020 12:00:00 AM EDT [facility] ([facility]) Will Golden MD: [address] [place] [address], Ph. Attender: Will Golden MD [facility] Medical 09/27/2020 12:00:00 AM EDT [facility] ([facility]) Will Golden MD: [address] [place] [address], Ph. Attender: Will Golden MD [facility] Medical 09/27/2020 12:00:00 AM EDT [facility] ([facility]) Will Golden MD: [address] [place] [address], Ph. Attender: Will Golden MD [facility] Medical 09/27/2020 12:00:00 AM EDT [facility] ([facility]) Will Golden MD: [address] [place] [address], Ph. Attender: Will Golden MD [facility] Medical 08/09/2020 12:00:00 AM EST [facility] ([facility]) Will Golden MD: [address] [place] [address], Ph. Attender: Will Golden MD [facility] Medical 08/09/2020 12:00:00 AM EST [facility] ([facility]) Will Golden MD: [address] [place] [address], Ph. Attender: Will Golden MD [facility] Medical 08/09/2020 12:00:00 AM EST [facility] ([facility]) Will Golden MD: [address] [place] [address], Ph. Attender: Will Golden MD [facility] Medical 08/09/2020 12:00:00 AM EST [facility] ([facility]) Will Golden MD: [address] [place] [address], Ph. Attender: Will Golden MD [facility] Medical 08/09/2020 12:00:00 AM EST [facility] ([facility]) Will Golden MD: [address] [place] [address], Ph. Attender: Will Golden MD [facility] Medical 07/12/2020 12:00:00 AM EST [facility] ([facility]) Will Golden MD: [address] [place] [address], Ph. Attender: Will Golden MD [facility] Medical 07/12/2020 12:00:00 AM EST [facility] ([facility]) Will Golden MD: [address] [place] [address], Ph. Attender: Will Golden MD [facility] Medical 07/12/2020 12:00:00 AM EST [facility] ([facility]) Will Golden MD: [address] [place] [address], Ph. Attender: Will Golden MD [facility] Medical 07/12/2020 12:00:00 AM EST [facility] ([facility]) Will Golden MD: [address] [place] [address], Ph. Attender: Will Golden MD [facility] Medical 07/12/2020 12:00:00 AM EST [facility] ([facility]) Will Golden MD: [address] [place] [address], Ph. Attender: Will Golden MD [facility] Medical 07/12/2020 12:00:00 AM EST [facility] ([facility]) Will Golden MD: [address] [place] [address], Ph. Attender: Will Gloden MD [facility] Medical 06/14/2020 12:00:00 AM EST [facility] ([facility]) Will Golden MD: [address] [place] [address], Ph. Attender: Will Golden MD [facility] Medical 06/14/2020 12:00:00 AM EST [facility] ([facility]) Will Golden MD: [address] [place] [address], Ph. Attender: Will Golden MD [facility] Medical 06/14/2020 12:00:00 AM EST [facility] ([facility]) Will Golden MD: [address] [place] [address], Ph. Attender: Will Golden MD [facility] Medical 06/14/2020 12:00:00 AM EST [facility] ([facility]) Will Golden MD: [address] [place] [address], Ph. Attender: Will Golden MD [facility] Medical 06/14/2020 12:00:00 AM EST [facility] ([facility]) Will Golden MD: [address] [place] [address], Ph. Attender: Will Golden MD [facility] Medical 06/14/2020 12:00:00 AM EST [facility] ([facility]) iWll Golden MD: [address] [place] [address], Ph. Attender: Will Golden MD [facility] Medical 06/14/2020 12:00:00 AM EST [facility] ([facility]) Will Golden MD: [address] [place] [address], Ph. Attender: Will Golden MD [facility] Medical 05/10/2020 12:00:00 AM EST [facility] ([facility]) Will Golden MD: [address] [place] [address], Ph. Attender: Will Golden MD [facility] Medical 05/10/2020 12:00:00 AM EST [facility] ([facility]) Will Golden MD: [address] [place] [address], Ph. Attender: Will Golden MD [facility] Medical 05/10/2020 12:00:00 AM EST [facility] ([facility]) Will Golden MD: [address] [place] [address], Ph. Attender: Will Golden MD [facility] Medical 05/10/2020 12:00:00 AM EST [facility] ([facility]) Will Golden MD: [address] [place] [address], Ph. Attender: Will Golden MD [facility] Medical 05/10/2020 12:00:00 AM EST [facility] ([facility]) Will Golden MD: [address] [place] [address], Ph. Attender: Will Golden MD [facility] Medical 05/10/2020 12:00:00 AM EST [facility] ([facility]) Will Golden MD: [address] [place] [address], Ph. Attender: Will Golden MD [facility] Medical 05/10/2020 12:00:00 AM EST [facility] ([facility]) Will Golden MD: [address] [place] [address], Ph. Attender: Will Golden MD [facility] Medical 05/10/2020 12:00:00 AM EST [facility] ([facility]) Outpatient Attender: Will Golden MD 04/12/2020 02:23:01 PM EST [facility] Will Golden MD: [address] [place] [address], Ph. Attender: Will Golden MD [facility] Medical 04/12/2020 12:00:00 AM EST [facility] ([facility]) Will Golden MD: [address] [place] [address], Ph. Attender: Will Golden MD [facility] Medical 04/12/2020 12:00:00 AM EST [facility] ([facility]) Will Golden MD: [address] [place] [address], Ph. Attender: Will Golden MD [facility] Medical 04/12/2020 12:00:00 AM EST [facility] ([facility]) Will Golden MD: [address] [place] [address], Ph. Attender: Will Golden MD [facility] Medical 04/12/2020 12:00:00 AM EST [facility] ([facility]) Will Golden MD: [address] [place] [address], Ph. Attender: Will Golden MD [facility] Medical 04/12/2020 12:00:00 AM EST [facility] ([facility]) Will Golden MD: [address] [place] [address], Ph. Attender: Will Golden MD [facility] Medical 04/12/2020 12:00:00 AM EST [facility] ([facility]) Will Golden MD: [address] [place] [address], Ph. Attender: Will Golden MD [facility] Medical 04/12/2020 12:00:00 AM EST [facility] ([facility]) Will Golden MD: [address] [place] [address], Ph. Attender: Will Golden MD [facility] Medical 04/12/2020 12:00:00 AM EST [facility] ([facility]) Will Golden MD: [address] [place] [address], Ph. Attender: Will Golden MD [facility] Medical 04/12/2020 12:00:00 AM EST [facility] ([facility]) Outpatient Attender: Will Golden MD 03/02/2020 09:54:00 AM EDT [facility] Outpatient Attender: Will Golden MD 02/04/2020 07:45:03 AM EDT [facility] Outpatient Attender: Will Golden [facility] Brand Name Start Date Product Form Dose Route Admi nistrative Instructions Pharmacy Instructions Status Indications Reaction Description Data Source(s) 8.6-2.1 mg 06/22/2020 12:00:00 AM EST tablet, sublingual 14 PLACE ONE TABLET UNDER THE TONGUE EVERY DAY MAXIMUM DAILY DOSE = 1 PLACE ONE TABLET UNDER THE TONGUE EVERY DAY MAXIMUM DAILY DOSE = 1 SOLD: 06/22/2020 [facility] 8.6-2.1 mg 06/16/2020 12:00:00 AM EST tablet, sublingual 5 PLACE ONE TABLET UNDER THE TONGUE EVERY DAY MAXIMUM DAILY DOSE = [address] ONE TABLET UNDER THE TONGUE EVERY DAY MAXIMUM DAILY DOSE = 1 TABLET SOLD: 06/16/2020 [facility] Doxycycline Monohydrate 100 MG Oral Caps ule doxycycline monohydrate 100 mg capsule TK 1 C PO BID FOR 7 DAYS doxycycline monohydrate 100 mg capsule T K 1 C PO BID FOR 7 DAYS completed doxycycline monohydrate 100 MG Oral Capsule [facility] ([facility]) Doxycycline Monohydrate 100 MG Oral Caps ule doxycycline monohydrate 100 mg capsule TK 1 C PO BID FOR 7 DAYS doxycycline monohydrate 100 mg capsule T K 1 C PO BID FOR 7 DAYS completed doxycycline monohydrate 100 MG Oral Capsule [facility] ([facility]) Doxycycline Monohydrate 100 MG Oral Caps ule doxycycline monohydrate 100 mg capsule TK 1 C PO BID FOR 7 DAYS doxycycline monohydrate 100 mg capsule T K 1 C PO BID FOR 7 DAYS completed doxycycline monohydrate 100 MG Oral Capsule [facility] ([facility]) Doxycycline Monohydrate 100 MG Oral Caps ule doxycycline monohydrate 100 mg capsule TK 1 C PO BID FOR 7 DAYS doxycycline monohydrate 100 mg capsule T K 1 C PO BID FOR 7 DAYS completed doxycycline monohydrate 100 MG Oral Capsule [facility] ([facility]) Doxycycline Monohydrate 100 MG Oral Caps ule doxycycline monohydrate 100 mg capsule TK 1 C PO BID FOR 7 DAYS doxycycline monohydrate 100 mg capsule T K 1 C PO BID FOR 7 DAYS completed doxycycline monohydrate 100 MG Oral Capsule [facility] ([facility]) Doxycycline Monohydrate 100 MG Oral Caps ule doxycycline monohydrate 100 mg capsule TK 1 C PO BID FOR 7 DAYS doxycycline monohydrate 100 mg capsule T K 1 C PO BID FOR 7 DAYS completed doxycycline monohydrate 100 MG Oral Capsule [facility] ([facility]) Doxycycline Monohydrate 100 MG Oral Caps ule doxycycline monohydrate 100 mg capsule TK 1 C PO BID FOR 7 DAYS doxycycline monohydrate 100 mg capsule T K 1 C PO BID FOR 7 DAYS completed doxycycline monohydrate 100 MG Oral Capsule [facility] ([facility]) Doxycycline Monohydrate 100 MG Oral Caps ule doxycycline monohydrate 100 mg capsule TK 1 C PO BID FOR 7 DAYS doxycycline monohydrate 100 mg capsule T K 1 C PO BID FOR 7 DAYS completed doxycycline monohydrate 100 MG Oral Capsule [facility] ([facility]) Doxycycline Monohydrate 100 MG Oral Caps ule doxycycline monohydrate 100 mg capsule TK 1 C PO BID FOR 7 DAYS doxycycline monohydrate 100 mg capsule T K 1 C PO BID FOR 7 DAYS completed doxycycline monohydrate 100 MG Oral Capsule [facility] ([facility]) Insurance Providers Payer name Policy type / Coverage type Policy ID Covered republican ID Covered republican's relationship to gibson Policy [place] Plan Information [facility] Part B [id number] Family Dependent 5 [id number] [facility] Part [id number] Family Dependent BS [employer] [id number] Self [id number] [employer] [id number] Self [id number] [employer] [id number] Self 802 BS [employer] [id number] Self [id number] [employer] Commercial Safety Net Ehp [id number] Self Safety Net Ehp [employer] [employer] Commercial [id number] Self [id number] [facility] Community Plan Commercial [id number] Self [id number] [facility] Community Plan Commercial [id number] Self Managed Care - [facility] Community Plan P [id number] S [id number] Medicaid S [id number] S [id number] [facility] Health Maintenance Organization (HMO) [id number] Self [id number] [facility] Health Maintenance Organization (O) [id number] Self [id number] [facility] Medicaid Medicaid [id number] Self [id number] [facility] Health Maintenance Organization (HMO) [id number] Self [id number] [facility] COMMUNITY PLAN MCDO [id number] SP [id number] [facility] COMMUNITY PLAN MCDO [id number] SP [id number] [facility] PLS Commercial [id number] Self [id number] [facility] Health Maintenance Organization (HMO) [id number] Self UN COMMUNITY PLAN MCDO [id number] SP [id number] SELF PAY UNAVAILABLE SP UNAVAILA BLE HMO BLUE [id number] SP [id number] SELF PAY SP UNAVAILABLE S UNAVAILA BLE Self Pay P [id number] S [id number] Self Pay P UNAVAILABLE S UNAVAILA BLE Managed Care - [facility] Community Plan P [id number] S [id number] SELF PAY ONLY [id number] SP [id number] [facility] COMMUNITY PLAN MCDO [id number] SP [id number] [facility] COMMUNITY PLAN MCDO [id number] SP [id number] SELF PAY ONLY [id number] SP [id number] [place] [facility] Health Maintenance Organization (HMO) [id number] Self [id number] [place] [facility] Health Maintenance Organization (HMO) [id number] Self [id number] [facility] Community Valerio/Ess PLS Commercial [id number] [facility] O [id number] S [id number] [facility] Organization (HMO) [id number] Self [id number] Problems, Conditions, and Diagnoses Code Display Name Description Problem Type Effective Dates Data Source(s) [id number] Pain of left shoulder joint Pain of Left Shoul jaja Joint Problem 02/03/2020 12:00:00 AM EDT [facility] ([facility]) [id number] Pain of left shoulder joint Pain of Left Shoul jaja Joint Problem 02/03/2020 12:00:00 AM EDT [facility] ([facility]) [id number] Pain of left shoulder joint Pain of Left Shoul jaja Joint Problem 02/03/2020 12:00:00 AM EDT [facility] ([facility]) [id number] Pain of left shoulder joint Pain of Left Shoul jaja Joint Problem 02/03/2020 12:00:00 AM EDT [facility] ([facility]) [id number] Pain of left shoulder joint Pain of Left Shoul jaja Joint Problem 02/03/2020 12:00:00 AM EDT [facility] ([facility]) [id number] Pain of left shoulder joint Pain of Left Shoul jaja Joint Problem 02/03/2020 12:00:00 AM EDT [facility] ([facility]) [id number] Pain of left shoulder joint Pain of Left Shoul jaja Joint Problem 02/03/2020 12:00:00 AM EDT [facility] ([facility]) [id number] Pain of left shoulder joint Pain of Left Shoul jaja Joint Problem 02/03/2020 12:00:00 AM EDT [facility] ([facility]) [id number] Pain of left shoulder joint Pain of Left Shoul jaja Joint Problem 02/03/2020 12:00:00 AM EDT [facility] ([facility]) Surgeries/Procedures No Information Results ID Date Data Source [id number] 01/25/2021 12:00:00 AM EDT [facility]) Name Value Range Interpretation Code Description Data Eli rce(s) Supporting Document(s) ID Date Data Source [id number] 12/28/2020 12:00:00 AM EDT [facility]) Name Value Range Interpretation Code Description Data Eli rce(s) Supporting Document(s) ID Date Data Source [id number] 12/28/2020 12:00:00 AM EDT [place] ([facility]) Name Value Range Interpretation Code Description Data Eli rce(s) Supporting Document(s) ID Date Data Source [id number] 09/27/2020 12:00:00 AM EDT [facility]) Name Value Range Interpretation Code Description Data Eli rce(s) Supporting Document(s) ID Date Data Source [id number] 09/27/2020 12:00:00 AM EDT [facility]) Name Value Range Interpretation Code Description Data Eli rce(s) Supporting Document(s) ID Date Data Source [id number] 09/27/2020 12:00:00 AM EDT AGU[facility]) Name Value Range Interpretation Code Description Data Eli rce(s) Supporting Document(s) ID Date Data Source [id number] 09/27/2020 12:00:00 AM EDT [facility] ([facility]) Name Value Range Interpretation Code Description Data Eli rce(s) Supporting Document(s) ID Date Data Source [id number] 08/09/2020 08:21:00 PM EST [facility] ([facility]) Name Value Range Interpretation Code Description Data Eli rce(s) Supporting Document(s) ID Date Data Source [id number] 08/09/2020 08:21:00 PM EST [facility] ([facility]) Name Value Range Interpretation Code Description Data Eli rce(s) Supporting Document(s) ID Date Data Source [id number] 08/09/2020 08:21:00 PM EST [facility] ([facility]) Name Value Range Interpretation Code Description Data Eli rce(s) Supporting Document(s) ID Date Data Source [id number] 08/09/2020 08:21:00 PM EST [facility] ([facility]) Name Value Range Interpretation Code Description Data Eli rce(s) Supporting Document(s) ID Date Data Source [id number] 08/09/2020 08:21:00 PM EST [facility] ([facility]) Name Value Range Interpretation Code Description Data Eli rce(s) Supporting Document(s) ID Date Data Source [id number] 07/12/2020 12:00:00 AM EST [facility]) Name Value Range Interpretation Code Description Data Eli rce(s) Supporting Document(s) ID Date Data Source [id number] 07/12/2020 12:00:00 AM EST [facility] ([facility]) Name Value Range Interpretation Code Description Data Eli rce(s) Supporting Document(s) ID Date Data Source [id number] 07/12/2020 12:00:00 AM EST [facility] ([facility]) Name Value Range Interpretation Code Description Data Eli rce(s) Supporting Document(s) ID Date Data Source [id number] 07/12/2020 12:00:00 AM EST [facility] ([facility]) Name Value Range Interpretation Code Description Data Eli rce(s) Supporting Document(s) ID Date Data Source [id number] 07/12/2020 12:00:00 AM EST [facility] ([facility]) Name Value Range Interpretation Code Description Data Eli rce(s) Supporting Document(s) Procedure Social History No Information Vital Signs ID Date Data Source [id number] Name Value Range Interpretation Code Description Data Source(s) Diastolic blood pressure 77 mm[Hg] 77 mm[Hg] [facility] ([facility]) Body height 70 [in_i] 70 [in_i] [facility] ([facility]) Body mass index (BMI) [Ratio] 30.5 kg/m2 30.5 k g/m2 [facility] ([facility]) Systolic blood pressure 116 mm[Hg] 116 mm[Hg] A [facility] ([facility]) Body weight 3396 [oz_av] 3396 [oz_av] [facility] ([facility]) Body mass index (BMI) [Ratio] 30.9 kg/m2 30.9 k g/m2 [facility] ([facility]) Diastolic blood pressure 79 mm[Hg] 79 mm[Hg] [facility] ([facility]) Body height 70 [in_i] 70 [in_i] [facility] ([facility]) Systolic blood pressure 126 mm[Hg] 126 mm[Hg] [facility] Body weight 3444 [oz_av] 3444 [oz_av] [facility] ([facility]) Diastolic blood pressure 79 mm[Hg] 79 mm[Hg] [facility] ([facility]) Body height 70 [in_i] 70 [in_i] [facility] ([facility]) Body mass index (BMI) [Ratio] 30.9 kg/m2 30.9 k g/m2 [facility] ([facility]) Systolic blood pressure 126 mm[Hg] 126 mm[Hg] A [facility] ([facility]) Body weight 3444 [oz_av] 3444 [oz_av] [facility] ([facility]) Systolic blood pressure 144 mm[Hg] 144 mm[Hg] [facility] Diastolic blood pressure 75 mm[Hg] 75 mm[Hg] [facility] ([facility]) Body height 70 [in_i] 70 [in_i] [facility] ([facility]) Body weight 3368 [oz_av] 3368 [oz_av] [facility] ([facility]) Body mass index (BMI) [Ratio] 30.2 kg/m2 30.2 k g/m2 [facility] ([facility]) Diastolic blood pressure 75 mm[Hg] 75 mm[Hg] [facility] ([facility]) Body height 70 [in_i] 70 [in_i] [facility] ([facility]) Body mass index (BMI) [Ratio] 30.2 kg/m2 30.2 k g/m2 [facility] ([facility]) Systolic blood pressure 144 mm[Hg] 144 mm[Hg] A [facility] ([facility]) Body weight 3368 [oz_av] 3368 [oz_av] [facility] ([facility]) Diastolic blood pressure 75 mm[Hg] 75 mm[Hg] [facility] ([facility]) Body height 70 [in_i] 70 [in_i] [facility] ([facility]) Body mass index (BMI) [Ratio] 30.2 kg/m2 30.2 k g/m2 [facility] ([facility]) Systolic blood pressure 144 mm[Hg] 144 mm[Hg] A [facility] ([facility]) Body weight 3368 [oz_av] 3368 [oz_av] [facility] ([facility]) Diastolic blood pressure 84 mm[Hg] 84 mm[Hg] [facility] ([facility]) Body height 70 [in_i] 70 [in_i] [facility] ([facility]) Body mass index (BMI) [Ratio] 29.8 kg/m2 29.8 k g/m2 [facility] ([facility]) Systolic blood pressure 120 mm[Hg] 120 mm[Hg] A [facility] ([facility]) Body weight 3328 [oz_av] 3328 [oz_av] [facility] ([facility]) Diastolic blood pressure 84 mm[Hg] 84 mm[Hg] [facility] ([facility]) Body height 70 [in_i] 70 [in_i] [facility] ([facility]) Body mass index (BMI) [Ratio] 29.8 kg/m2 29.8 k g/m2 [facility] ([facility]) Systolic blood pressure 120 mm[Hg] 120 mm[Hg] [facility] Body weight 3328 [oz_av] 3328 [oz_av] [facility] ([facility]) Body height 70 [in_i] 70 [in_i] [facility] ([facility]) Body mass index (BMI) [Ratio] 29.8 kg/m2 29.8 k g/m2 [facility] ([facility]) Systolic blood pressure 120 mm[Hg] 120 mm[Hg] A [facility] ([facility]) Body weight 3328 [oz_av] 3328 [oz_av] [facility] ([facility]) Diastolic blood pressure 84 mm[Hg] 84 mm[Hg] [facility] ([facility]) Body mass index (BMI) [Ratio] 29.8 kg/m2 29.8 k g/m2 [facility] ([facility]) Systolic blood pressure 120 mm[Hg] 120 mm[Hg] [facility] Body weight 3328 [oz_av] 3328 [oz_av] [facility] ([facility]) Diastolic blood pressure 84 mm[Hg] 84 mm[Hg] [facility] ([facility]) Body height 70 [in_i] 70 [in_i] [facility] ([facility]) Diastolic blood pressure 78 mm[Hg] 78 mm[Hg] [facility] ([facility]) Body height 70 [in_i] 70 [in_i] [facility] ([facility]) Body mass index (BMI) [Ratio] 31.6 kg/m2 31.6 k g/m2 [facility] ([facility]) Systolic blood pressure 134 mm[Hg] 134 mm[Hg] A [facility] ([facility]) Body weight 3526 [oz_av] 3526 [oz_av] [facility] ([facility]) Systolic blood pressure 134 mm[Hg] 134 mm[Hg] [facility] Diastolic blood pressure 78 mm[Hg] 78 mm[Hg] [facility] ([facility]) Body height 70 [in_i] 70 [in_i] [facility] ([facility]) Body mass index (BMI) [Ratio] 31.6 kg/m2 31.6 k g/m2 [facility] ([facility]) Body weight 3526 [oz_av] 3526 [oz_av] [facility] ([facility]) Diastolic blood pressure 78 mm[Hg] 78 mm[Hg] [facility] ([facility]) Body height 70 [in_i] 70 [in_i] [facility] ([facility]) Body mass index (BMI) [Ratio] 31.6 kg/m2 31.6 k g/m2 [facility] ([facility]) Systolic blood pressure 134 mm[Hg] 134 mm[Hg] A [facility] ([facility]) Body weight 3526 [oz_av] 3526 [oz_av] [facility] ([facility]) Diastolic blood pressure 78 mm[Hg] 78 mm[Hg] [facility] ([facility]) Body height 70 [in_i] 70 [in_i] [facility] ([facility]) Body mass index (BMI) [Ratio] 31.6 kg/m2 31.6 k g/m2 [facility] ([facility]) Systolic blood pressure 134 mm[Hg] 134 mm[Hg] A [facility] ([facility]) Body weight 3526 [oz_av] 3526 [oz_av] [facility] ([facility]) Diastolic blood pressure 78 mm[Hg] 78 mm[Hg] [facility] ([facility]) Body height 70 [in_i] 70 [in_i] [facility] ([facility]) Body mass index (BMI) [Ratio] 31.6 kg/m2 31.6 k g/m2 [facility] ([facility]) Systolic blood pressure 134 mm[Hg] 134 mm[Hg] [facility] Body weight 3526 [oz_av] 3526 [oz_av] [facility] ([facility]) Diastolic blood pressure 85 mm[Hg] 85 mm[Hg] [facility] ([facility]) Body height 70 [in_i] 70 [in_i] [facility] ([facility]) Body mass index (BMI) [Ratio] 32.1 kg/m2 32.1 k g/m2 [facility] ([facility]) Systolic blood pressure 126 mm[Hg] 126 mm[Hg] A [facility] ([facility]) Body weight 3584 [oz_av] 3584 [oz_av] [facility] ([facility]) Diastolic blood pressure 85 mm[Hg] 85 mm[Hg] [facility] ([facility]) Body height 70 [in_i] 70 [in_i] [facility] ([facility]) Body mass index (BMI) [Ratio] 32.1 kg/m2 32.1 k g/m2 [facility] ([facility]) Systolic blood pressure 126 mm[Hg] 126 mm[Hg] A [facility] ([facility]) Body weight 3584 [oz_av] 3584 [oz_av] [facility] ([facility]) Diastolic blood pressure 85 mm[Hg] 85 mm[Hg] [facility] ([facility]) Body height 70 [in_i] 70 [in_i] [facility] ([facility]) Body mass index (BMI) [Ratio] 32.1 kg/m2 32.1 k g/m2 [facility] ([facility]) Systolic blood pressure 126 mm[Hg] 126 mm[Hg] A [facility] ([facility]) Body weight 3584 [oz_av] 3584 [oz_av] [facility] ([facility]) Diastolic blood pressure 85 mm[Hg] 85 mm[Hg] [facility] ([facility]) Body height 70 [in_i] 70 [in_i] [facility] ([facility]) Body mass index (BMI) [Ratio] 32.1 kg/m2 32.1 k g/m2 [facility] ([facility]) Systolic blood pressure 126 mm[Hg] 126 mm[Hg] [facility] Body weight 3584 [oz_av] 3584 [oz_av] [facility] ([facility]) Diastolic blood pressure 85 mm[Hg] 85 mm[Hg] [facility] ([facility]) Body height 70 [in_i] 70 [in_i] [facility] ([facility]) Body mass index (BMI) [Ratio] 32.1 kg/m2 32.1 k g/m2 [facility] ([facility]) Systolic blood pressure 126 mm[Hg] 126 mm[Hg] A [facility] ([facility]) Body weight 3584 [oz_av] 3584 [oz_av] [facility] ([facility]) Diastolic blood pressure 69 mm[Hg] 69 mm[Hg] [facility] ([facility]) Body height 70 [in_i] 70 [in_i] [facility] ([facility]) Body mass index (BMI) [Ratio] 32.1 kg/m2 32.1 k g/m2 [facility] ([facility]) Systolic blood pressure 124 mm[Hg] 124 mm[Hg] A [facility] ([facility]) Body weight 3584 [oz_av] 3584 [oz_av] [facility] ([facility]) Diastolic blood pressure 69 mm[Hg] 69 mm[Hg] [facility] ([facility]) Body height 70 [in_i] 70 [in_i] [facility] ([facility]) Body mass index (BMI) [Ratio] 32.1 kg/m2 32.1 k g/m2 [facility] ([facility]) Systolic blood pressure 124 mm[Hg] 124 mm[Hg] A [facility] ([facility]) Body weight 3584 [oz_av] 3584 [oz_av] [facility] ([facility]) Diastolic blood pressure 69 mm[Hg] 69 mm[Hg] [facility] ([facility]) Body height 70 [in_i] 70 [in_i] [facility] ([facility]) Body mass index (BMI) [Ratio] 32.1 kg/m2 32.1 k g/m2 [facility] ([facility]) Systolic blood pressure 124 mm[Hg] 124 mm[Hg] A [facility] ([facility]) Body weight 3584 [oz_av] 3584 [oz_av] [facility] ([facility]) Diastolic blood pressure 69 mm[Hg] 69 mm[Hg] [facility] ([facility]) Body height 70 [in_i] 70 [in_i] [facility] ([facility]) Body mass index (BMI) [Ratio] 32.1 kg/m2 32.1 k g/m2 [facility] ([facility]) Systolic blood pressure 124 mm[Hg] 124 mm[Hg] A [facility] ([facility]) Body weight 3584 [oz_av] 3584 [oz_av] [facility] ([facility]) Diastolic blood pressure 69 mm[Hg] 69 mm[Hg] [facility] ([facility]) Body height 70 [in_i] 70 [in_i] [facility] ([facility]) Body mass index (BMI) [Ratio] 32.1 kg/m2 32.1 k g/m2 [facility] ([facility]) Systolic blood pressure 124 mm[Hg] 124 mm[Hg] A [facility] ([facility]) Body weight 3584 [oz_av] 3584 [oz_av] [facility] ([facility]) Diastolic blood pressure 69 mm[Hg] 69 mm[Hg] [facility] ([facility]) Body height 70 [in_i] 70 [in_i] [facility] ([facility]) Body mass index (BMI) [Ratio] 32.1 kg/m2 32.1 k g/m2 [facility] ([facility]) Systolic blood pressure 124 mm[Hg] 124 mm[Hg] A [facility] ([facility]) Body weight 3584 [oz_av] 3584 [oz_av] [facility] ([facility]) Diastolic blood pressure 82 mm[Hg] 82 mm[Hg] [facility] ([facility]) Body height 70 [in_i] 70 [in_i] [facility] ([facility]) Body mass index (BMI) [Ratio] 32.3 kg/m2 32.3 k g/m2 [facility] ([facility]) Systolic blood pressure 129 mm[Hg] 129 mm[Hg] A [facility] ([facility]) Body weight 3600 [oz_av] 3600 [oz_av] [facility] ([facility]) Diastolic blood pressure 82 mm[Hg] 82 mm[Hg] [facility] ([facility]) Body height 70 [in_i] 70 [in_i] [facility] ([facility]) Body mass index (BMI) [Ratio] 32.3 kg/m2 32.3 k g/m2 [facility] ([facility]) Systolic blood pressure 129 mm[Hg] 129 mm[Hg] A [facility] ([facility]) Body weight 3600 [oz_av] 3600 [oz_av] [facility] ([facility]) Diastolic blood pressure 82 mm[Hg] 82 mm[Hg] [facility] ([facility]) Body height 70 [in_i] 70 [in_i] [facility] ([facility]) Body mass index (BMI) [Ratio] 32.3 kg/m2 32.3 k g/m2 [facility] ([facility]) Systolic blood pressure 129 mm[Hg] 129 mm[Hg] A [facility] ([facility]) Body weight 3600 [oz_av] 3600 [oz_av] [facility] ([facility]) Diastolic blood pressure 82 mm[Hg] 82 mm[Hg] [facility] ([facility]) Body height 70 [in_i] 70 [in_i] [facility] ([facility]) Body mass index (BMI) [Ratio] 32.3 kg/m2 32.3 k g/m2 [facility] ([facility]) Systolic blood pressure 129 mm[Hg] 129 mm[Hg] A [facility] ([facility]) Body weight 3600 [oz_av] 3600 [oz_av] [facility] ([facility]) Diastolic blood pressure 82 mm[Hg] 82 mm[Hg] [facility] ([facility]) Body height 70 [in_i] 70 [in_i] [facility] ([facility]) Body mass index (BMI) [Ratio] 32.3 kg/m2 32.3 k g/m2 [facility] ([facility]) Systolic blood pressure 129 mm[Hg] 129 mm[Hg] [facility] Body weight 3600 [oz_av] 3600 [oz_av] [facility] ([facility]) Diastolic blood pressure 82 mm[Hg] 82 mm[Hg] [facility] ([facility]) Body height 70 [in_i] 70 [in_i] [facility] ([facility]) Body mass index (BMI) [Ratio] 32.3 kg/m2 32.3 k g/m2 [facility] ([facility]) Systolic blood pressure 129 mm[Hg] 129 mm[Hg] A [facility] ([facility]) Body weight 3600 [oz_av] 3600 [oz_av] [facility] ([facility]) Diastolic blood pressure 82 mm[Hg] 82 mm[Hg] [facility] ([facility]) Body height 70 [in_i] 70 [in_i] [facility] ([facility]) Body mass index (BMI) [Ratio] 32.3 kg/m2 32.3 k g/m2 [facility] ([facility]) Systolic blood pressure 129 mm[Hg] 129 mm[Hg] A [facility] ([facility]) Body weight 3600 [oz_av] 3600 [oz_av] [facility] ([facility]) Diastolic blood pressure 76 mm[Hg] 76 mm[Hg] [facility] ([facility]) Body height 70 [in_i] 70 [in_i] [facility] ([facility]) Body mass index (BMI) [Ratio] 31.9 kg/m2 31.9 k g/m2 [facility] ([facility]) Systolic blood pressure 114 mm[Hg] 114 mm[Hg] A [facility] ([facility]) Body weight 3558.4 [oz_av] 3558.4 [oz_av] [facility] ([facility]) Diastolic blood pressure 76 mm[Hg] 76 mm[Hg] [facility] ([facility]) Body height 70 [in_i] 70 [in_i] [facility] ([facility]) Body mass index (BMI) [Ratio] 31.9 kg/m2 31.9 k g/m2 [facility] ([facility]) Systolic blood pressure 114 mm[Hg] 114 mm[Hg] A [facility] ([facility]) Body weight 3558.4 [oz_av] 3558.4 [oz_av] [facility] ([facility]) Diastolic blood pressure 76 mm[Hg] 76 mm[Hg] [facility] ([facility]) Body height 70 [in_i] 70 [in_i] [facility] ([facility]) Body mass index (BMI) [Ratio] 31.9 kg/m2 31.9 k g/m2 AGUILA ([facility]) Systolic blood pressure 114 mm[Hg] 114 mm[Hg] A THENA ([facility]) Body weight 3558.4 [oz_av] 3558.4 [oz_av] ATHEN A ([facility]) Diastolic blood pressure 76 mm[Hg] 76 mm[Hg] AGUILA ([facility]) Body height 70 [in_i] 70 [in_i] AGUILA ([facility]) Body mass index (BMI) [Ratio] 31.9 kg/m2 31.9 k g/m2 AGUILA ([facility]) Systolic blood pressure 114 mm[Hg] 114 mm[Hg] A THENA ([facility]) Body weight 3558.4 [oz_av] 3558.4 [oz_av] ATHEN A ([facility]) Diastolic blood pressure 76 mm[Hg] 76 mm[Hg] AGUILA ([facility]) Body height 70 [in_i] 70 [in_i] AGUILA ([facility]) Body mass index (BMI) [Ratio] 31.9 kg/m2 31.9 k g/m2 AGUILA ([facility]) Systolic blood pressure 114 mm[Hg] 114 mm[Hg] A THENA ([facility]) Body weight 3558.4 [oz_av] 3558.4 [oz_av] ATHEN A ([facility]) Body mass index (BMI) [Ratio] 31.9 kg/m2 31.9 k g/m2 AGUILA ([facility]) Body height 70 [in_i] 70 [in_i] AGUILA ([facility]) Systolic blood pressure 114 mm[Hg] 114 mm[Hg] [facility] Body weight 3558.4 [oz_av] 3558.4 [oz_av] ATHEN A ([facility]) Diastolic blood pressure 76 mm[Hg] 76 mm[Hg] GAUILA ([facility]) Body mass index (BMI) [Ratio] 31.9 kg/m2 31.9 k g/m2 AGUILA ([facility]) Systolic blood pressure 114 mm[Hg] 114 mm[Hg] [facility] Body weight 3558.4 [oz_av] 3558.4 [oz_av] ATHEN A ([facility]) Diastolic blood pressure 76 mm[Hg] 76 mm[Hg] AGUILA ([facility]) Body height 70 [in_i] 70 [in_i] AGUILA ([facility]) Diastolic blood pressure 76 mm[Hg] 76 mm[Hg] AGUILA ([facility]) Body height 70 [in_i] 70 [in_i] AGUILA ([facility]) Body mass index (BMI) [Ratio] 31.9 kg/m2 31.9 k g/m2 AGUILA ([facility]) Systolic blood pressure 114 mm[Hg] 114 mm[Hg] A THENA ([facility]) Body weight 3558.4 [oz_av] 3558.4 [oz_av] ATHEN A ([facility]) Body height 70 [in_i] 70 [in_i] AGUILA ([facility]) Body mass index (BMI) [Ratio] 32 kg/m2 32 kg/ m2 AGUILA ([facility]) Body weight 3568 [oz_av] 3568 [oz_av] AGUILA ([facility]) Body height 70 [in_i] 70 [in_i] AGUILA ([facility]) Body mass index (BMI) [Ratio] 32 kg/m2 32 kg/ m2 AGUILA ([facility]) Body weight 3568 [oz_av] 3568 [oz_av] AGUILA ([facility]) Body height 70 [in_i] 70 [in_i] AGUILA ([facility]) Body mass index (BMI) [Ratio] 32 kg/m2 32 kg/ m2 AGUILA ([facility]) Body weight 3568 [oz_av] 3568 [oz_av] AGUILA ([facility]) Body height 70 [in_i] 70 [in_i] AGUILA ([facility]) Body mass index (BMI) [Ratio] 32 kg/m2 32 kg/ m2 AGUILA ([facility]) Body weight 3568 [oz_av] 3568 [oz_av] AGUILA ([facility]) Body height 70 [in_i] 70 [in_i] AGUILA ([facility]) Body mass index (BMI) [Ratio] 32 kg/m2 32 kg/ m2 AGUILA ([facility]) Body weight 3568 [oz_av] 3568 [oz_av] AGUILA ([facility]) Body height 70 [in_i] 70 [in_i] AGUILA ([facility]) Body mass index (BMI) [Ratio] 32 kg/m2 32 kg/ m2 AGUILA ([facility]) Body weight 3568 [oz_av] 3568 [oz_av] AGUILA ([facility]) Body height 70 [in_i] 70 [in_i] AGUILA ([facility]) Body mass index (BMI) [Ratio] 32 kg/m2 32 kg/ m2 AGUILA ([facility]) Body weight 3568 [oz_av] 3568 [oz_av] AGUILA ([facility]) Body height 70 [in_i] 70 [in_i] AGUILA ([facility]) Body mass index (BMI) [Ratio] 32 kg/m2 32 kg/ m2 AGUILA ([facility]) Body weight 3568 [oz_av] 3568 [oz_av] AGUILA ([facility]) Body height 70 [in_i] 70 [in_i] AGUILA ([facility]) Body mass index (BMI) [Ratio] 32 kg/m2 32 kg/ m2 AGUILA ([facility]) Body weight 3568 [oz_av] 3568 [oz_av] AGUILA ([facility]) Body weight 3452.8 [oz_av] 3452.8 [oz_av] ATHEN A ([facility]) Diastolic blood pressure 82 mm[Hg] 82 mm[Hg] AGUILA ([facility]) Body height 70 [in_i] 70 [in_i] AGUILA ([facility]) Body mass index (BMI) [Ratio] 31.08 kg/m2 31.08 kg/m2 AGUILA ([facility]) Systolic blood pressure 120 mm[Hg] 120 mm[Hg] A [facility] ([facility]) Diastolic blood pressure 82 mm[Hg] 82 mm[Hg] AGUILA ([facility]) Body height 70 [in_i] 70 [in_i] AGUILA ([facility]) Body mass index (BMI) [Ratio] 31.08 kg/m2 31.08 kg/m2 AGUILA ([facility]) Systolic blood pressure 120 mm[Hg] 120 mm[Hg] A THENA ([facility]) Body weight 3452.8 [oz_av] 3452.8 [oz_av] ATHEN A ([facility]) Diastolic blood pressure 82 mm[Hg] 82 mm[Hg] AGUILA ([facility]) Body height 70 [in_i] 70 [in_i] AGUILA ([facility]) Body mass index (BMI) [Ratio] 31.08 kg/m2 31.08 kg/m2 AGUILA ([facility]) Systolic blood pressure 120 mm[Hg] 120 mm[Hg] A THENA ([facility]) Body weight 3452.8 [oz_av] 3452.8 [oz_av] ATHEN A ([facility]) Diastolic blood pressure 82 mm[Hg] 82 mm[Hg] AGUILA ([facility]) Body height 70 [in_i] 70 [in_i] AGUILA ([facility]) Body mass index (BMI) [Ratio] 31.08 kg/m2 31.08 kg/m2 AGUILA ([facility]) Systolic blood pressure 120 mm[Hg] 120 mm[Hg] [facility] Body weight 3452.8 [oz_av] 3452.8 [oz_av] ATHEN A ([facility]) Body mass index (BMI) [Ratio] 31.08 kg/m2 31.08 kg/m2 AGUILA ([facility]) Diastolic blood pressure 82 mm[Hg] 82 mm[Hg] AGUILA ([facility]) Body height 70 [in_i] 70 [in_i] AGUILA ([facility]) Systolic blood pressure 120 mm[Hg] 120 mm[Hg] [facility] Body weight 3452.8 [oz_av] 3452.8 [oz_av] ATHEN A ([facility]) Body weight 3874.08 [oz_av] 3874.08 [oz_av] ATH DHRUV ([facility]) Diastolic blood pressure 73 mm[Hg] 73 mm[Hg] AGUILA ([facility]) Body height 70 [in_i] 70 [in_i] AGUILA ([facility]) Systolic blood pressure 114 mm[Hg] 114 mm[Hg] [facility] Diastolic blood pressure 73 mm[Hg] 73 mm[Hg] AGUILA ([facility]) Body mass index (BMI) [Ratio] 34.87 kg/m2 34.87 kg/m2 AGUILA ([facility]) Body height 70 [in_i] 70 [in_i] AGUILA ([facility]) Systolic blood pressure 114 mm[Hg] 114 mm[Hg] [facility] Body weight 3874.08 [oz_av] 3874.08 [oz_av] ATH DHRUV ([facility]) Body weight 3874.08 [oz_av] 3874.08 [oz_av] ATH DHRUV ([facility]) Diastolic blood pressure 73 mm[Hg] 73 mm[Hg] AGUILA ([facility]) Body height 70 [in_i] 70 [in_i] AGUILA ([facility]) Systolic blood pressure 114 mm[Hg] 114 mm[Hg] [facility] Body mass index (BMI) [Ratio] 34.87 kg/m2 34.87 kg/m2 AGUILA ([facility]) Diastolic blood pressure 73 mm[Hg] 73 mm[Hg] AGUILA ([facility]) Body height 70 [in_i] 70 [in_i] AGUILA ([facility]) Diastolic blood pressure 73 mm[Hg] 73 mm[Hg] AGUILA ([facility]) Body height 70 [in_i] 70 [in_i] AGUILA ([facility]) Systolic blood pressure 114 mm[Hg] 114 mm[Hg] [facility] Body weight 3874.08 [oz_av] 3874.08 [oz_av] ATH DHRUV ([facility]) Systolic blood pressure 114 mm[Hg] 114 mm[Hg] A THENA ([facility]) Body weight 3874.08 [oz_av] 3874.08 [oz_av] ATH DHRUV ([facility]) Diastolic blood pressure 73 mm[Hg] 73 mm[Hg] AGUILA ([facility]) Body height 70 [in_i] 70 [in_i] AGUILA ([facility]) Systolic blood pressure 114 mm[Hg] 114 mm[Hg] A THENA ([facility]) Body weight 3874.08 [oz_av] 3874.08 [oz_av] ATH DHRUV ([facility]) Diastolic blood pressure 73 mm[Hg] 73 mm[Hg] AGUILA ([facility]) Body height 70 [in_i] 70 [in_i] AGUILA ([facility]) Body mass index (BMI) [Ratio] 34.87 kg/m2 34.87 kg/m2 AGUILA ([facility]) Systolic blood pressure 114 mm[Hg] 114 mm[Hg] [facility] Body weight 3874.08 [oz_av] 3874.08 [oz_av] ATH DHRUV ([facility]) Diastolic blood pressure 73 mm[Hg] 73 mm[Hg] AGUILA ([facility]) Body height 70 [in_i] 70 [in_i] AGUILA ([facility]) Body mass index (BMI) [Ratio] 34.87 kg/m2 34.87 kg/m2 AGUILA ([facility]) Systolic blood pressure 114 mm[Hg] 114 mm[Hg] A THENA ([facility]) Body weight 3874.08 [oz_av] 3874.08 [oz_av] ATH DHRUV ([facility]) Diastolic blood pressure 73 mm[Hg] 73 mm[Hg] AGUILA ([facility]) Body height 70 [in_i] 70 [in_i] AGUILA ([facility]) Body mass index (BMI) [Ratio] 34.87 kg/m2 34.87 kg/m2 AGUILA ([facility]) Systolic blood pressure 114 mm[Hg] 114 mm[Hg] A THENA ([facility]) Body weight 3874.08 [oz_av] 3874.08 [oz_av] ATH DHRUV ([facility]) Patient Treatment Plan of Care Planned Activity Planned Date Details Description Data Source (s) Doxycycline Monohydrate 100 MG Oral Capsule AGUILA ([facility]) Doxycycline Monohydrate 100 MG Oral Capsule AGUILA ([facility]) Doxycycline Monohydrate 100 MG Oral Capsule AGUILA ([facility]) Doxycycline Monohydrate 100 MG Oral Capsule AGUILA ([facility]) Doxycycline Monohydrate 100 MG Oral Capsule AGUILA ([facility]) Doxycycline Monohydrate 100 MG Oral Capsule AGUILA ([facility]) Doxycycline Monohydrate 100 MG Oral Capsule AGUILA ([facility]) Doxycycline Monohydrate 100 MG Oral Capsule AGUILA ([facility]) Doxycycline Monohydrate 100 MG Oral Capsule AGUILA ([facility])
--- OUTSIDE RECORDS SUMMARY | 2021-03-24 16:22 | CCD ---
Author Author [facility] Organization [facility] Address Unknown Phone Unavailable Care Team Providers Care Facing Baster Jumpbasting Name Role Phone Marie Golden MD Unavailable [...] Unavailable Marie Golden MD Unavailable Unavailable Marie Godlen MD Unavailable Unavailable Marie Golden MD Unavailable [...] is protected by Article 27-F of the [facility] Public Health law. If you continue you may have access to information: Regarding HIV / AIDS; Provided by facilities licensed or operated by the [facility] Office of Mental Health; or Provided by the [facility] Office for People With Developmental Disabilities. If such information is present, then the following [facility] mandated warning applies: This information has been [...] law may result in a fine or longterm sentence or both. A general authorization for the release of medical or other information is NOT sufficient authorization for further disc losure. Family History Family Member Name Family Member Gender Family Member Status Date o f Status Description Data Source(s) Unknown Unknown Problem [facility] ([facility]) Unknown Female Problem MEDENT ([facility]) Unknown Female Problem [facility] ([facility]) twice Unknown Female Problem [facility] ([facility]) Encounters Encounter Providers Location Date Indications Data Source(s ) Will Golden MD: [address] [place] [address], Ph. Attender: Will Golden MD [facility] Medical 02/23/2021 12:00:00 AM EDT [place] ([facility]) Will Golden MD: [address] [place] [address], Ph. Attender: Will Golden MD [facility] Medical 01/25/2021 12:00:00 AM EDT [place] ([facility]) Will Golden MD: [address] [place] [address], Ph. Attender: Will Golden MD [facility] Medical 01/25/2021 12:00:00 AM EDT [place] ([facility]) Will Golden MD: [address] [place] [address], Ph. Attender: Will Golden MD [facility] Medical 12/28/2020 12:00:00 AM EDT [place] ([facility]) Will Golden MD: [address] [place] [address], Ph. Attender: Will Golden MD [facility] Medical 12/28/2020 12:00:00 AM EDT [place] ([facility]) Will Golden MD: [address] [place] [address], Ph. Attender: Will Golden MD [facility] Medical 12/28/2020 12:00:00 AM EDT [place] ([facility]) Will Golden MD: [address] [place] [address], Ph. Attender: Will Golden MD [facility] Medical 11/29/2020 12:00:00 AM EDT [place] ([facility]) Will Golden MD: [address] [place] [address], Ph. Attender: Will Golden MD [facility] Medical 11/29/2020 12:00:00 AM EDT [place] ([facility]) Will Golden MD: [address] [place] [address], Ph. Attender: Will Golden MD [facility] Medical 11/29/2020 12:00:00 AM EDT [place] ([facility]) Will Golden MD: [address] [place] [address], Ph. Attender: Will Golden MD [facility] Medical 11/01/2020 12:00:00 AM EDT [place] ([facility]) Will Golden MD: [address] [place] [address], Ph. Attender: Will Golden MD [facility] Medical 11/01/2020 12:00:00 AM EDT [place] ([facility]) Will Golden MD: [address] [place] [address], Ph. Attender: Will Golden MD [facility] Medical 11/01/2020 12:00:00 AM EDT [place] ([facility]) Will Golden MD: [address] [place] [address], Ph. Attender: Will Golden MD [facility] Medical 11/01/2020 12:00:00 AM EDT [place] ([facility]) Will Golden MD: [address] [place] [address], Ph. Attender: Will Golden MD [facility] Medical 09/27/2020 12:00:00 AM EDT [place] ([facility]) Will Golden MD: [address] [place] [address], Ph. Attender: Will Golden MD [facility] Medical 09/27/2020 12:00:00 AM EDT [place] ([facility]) Will Golden MD: [address] [place] [address], Ph. Attender: Will Golden MD [facility] Medical 09/27/2020 12:00:00 AM EDT [place] ([facility]) Will Golden MD: [address] [place] [address], Ph. Attender: Will Golden MD [facility] Medical 09/27/2020 12:00:00 AM EDT [place] ([facility]) Will Golden MD: [address] [place] [address], Ph. Attender: Will Golden MD [facility] Medical 09/27/2020 12:00:00 AM EDT [place] ([facility]) Will Golden MD: [address] [place] [address], Ph. Attender: Will Golden MD [facility] Medical 08/09/2020 12:00:00 AM EST [place] ([facility]) Will Golden MD: [address] [place] [address], Ph. Attender: Will Golden MD [facility] Medical 08/09/2020 12:00:00 AM EST [place] ([facility]) Will Golden MD: [address] [place] [address], Ph. Attender: Will Golden MD [facility] Medical 08/09/2020 12:00:00 AM EST [place] ([facility]) Will Golden MD: [address] [place] [address], Ph. Attender: Will Golden MD [facility] Medical 08/09/2020 12:00:00 AM EST [place] ([facility]) Will Golden MD: [address] [place] [address], Ph. Attender: Will Golden MD [facility] Medical 08/09/2020 12:00:00 AM EST [place] ([facility]) Will Golden MD: [address] [place] [address], Ph. Attender: Will Golden MD [facility] Medical 07/12/2020 12:00:00 AM EST [place] ([facility]) Will Golden MD: [address] [place] [address], Ph. Attender: Will Golden MD [facility] Medical 07/12/2020 12:00:00 AM EST [place] ([facility]) Will Golden MD: [address] [place] [address], Ph. Attender: Will Golden MD [facility] Medical 07/12/2020 12:00:00 AM EST [place] ([facility]) Will Golden MD: [address] [place] [address], Ph. Attender: Will Golden MD [facility] Medical 07/12/2020 12:00:00 AM EST [place] ([facility]) Will Golden MD: [address] [place] [address], Ph. Attender: Will Golden MD [facility] Medical 07/12/2020 12:00:00 AM EST [place] ([facility]) Will Golden MD: [address] [place] [address], Ph. Attender: Will Golden MD [facility] Medical 07/12/2020 12:00:00 AM EST [place] ([facility]) Will Golden MD: [address] [place] [address], Ph. Attender: Will Golden MD [facility] Medical 06/14/2020 12:00:00 AM EST [place] ([facility]) Will Golden MD: [address] [place] [address], Ph. Attender: Will Golden MD [facility] Medical 06/14/2020 12:00:00 AM EST [place] ([facility]) Will Golden MD: [address] [place] [address], Ph. Attender: Will Golden MD [facility] Medical 06/14/2020 12:00:00 AM EST [place] ([facility]) Will Golden MD: [address] [place] [address], Ph. Attender: Will Golden MD [facility] Medical 06/14/2020 12:00:00 AM EST [place] ([facility]) iWll Golden MD: [address] [place] [address], Ph. Attender: Will Golden MD [facility] Medical 06/14/2020 12:00:00 AM EST [place] ([facility]) Will Golden MD: [address] [place] [address], Ph. Attender: Will Golden MD [facility] Medical 06/14/2020 12:00:00 AM EST [place] ([facility]) Will Golden MD: [address] [place] [address], Ph. Attender: Will Golden MD [facility] Medical 06/14/2020 12:00:00 AM EST [place] ([facility]) Will Golden MD: [address] [place] [address], Ph. Attender: Will Golden MD [facility] Medical 05/10/2020 12:00:00 AM EST [place] ([facility]) Will Golden MD: [address] [place] [address], Ph. Attender: Will Golden MD [facility] Medical 05/10/2020 12:00:00 AM EST [place] ([facility]) Will Golden MD: [address] [place] [address], Ph. Attender: Will Golden MD [facility] Medical 05/10/2020 12:00:00 AM EST [place] ([facility]) Will Golden MD: [address] [place] [address], Ph. Attender: Will Golden MD [facility] Medical 05/10/2020 12:00:00 AM EST [place] ([facility]) Will Golden MD: [address] [place] [address], Ph. Attender: Will oGlden MD [facility] Medical 05/10/2020 12:00:00 AM EST [place] ([facility]) Will Golden MD: [address] [place] [address], Ph. Attender: Will Golden MD [facility] Medical 05/10/2020 12:00:00 AM EST [place] ([facility]) Will Golden MD: [address] [place] [address], Ph. Attender: Will Golden MD [facility] Medical 05/10/2020 12:00:00 AM EST [place] ([facility]) Will Golden MD: [address] [place] [address], Ph. Attender: Will Golden MD [facility] Medical 05/10/2020 12:00:00 AM EST [place] ([facility]) Outpatient Attender: Will Golden MD 04/12/2020 02:23:01 PM EST [facility] Will Golden MD: [address] [place] [address], Ph. Attender: Will Golden MD [facility] Medical 04/12/2020 12:00:00 AM EST [place] ([facility]) Will Golden MD: [address] [place] [address], Ph. Attender: Will Golden MD [facility] Medical 04/12/2020 12:00:00 AM EST [place] ([facility]) Will Golden MD: [address] [place] [address], Ph. Attender: Will Golden MD [facility] Medical 04/12/2020 12:00:00 AM EST [place] ([facility]) Will Golden MD: [address] [place] [address], Ph. Attender: Will Golden MD [facility] Medical 04/12/2020 12:00:00 AM EST [place] ([facility]) Will Golden MD: [address] [place] [address], Ph. Attender: Will Golden MD [facility] Medical 04/12/2020 12:00:00 AM EST [place] ([facility]) Will Golden MD: [address] [place] [address], Ph. Attender: Will Golden MD [facility] Medical 04/12/2020 12:00:00 AM EST [place] ([facility]) Will Golden MD: [address] [place] [address], Ph. Attender: Will Golden MD [facility] Medical 04/12/2020 12:00:00 AM EST [place] ([facility]) Will Golden MD: [address] [place] [address], Ph. Attender: Will Golden MD [facility] Medical 04/12/2020 12:00:00 AM EST [place] ([facility]) Will Golden MD: [address] [place] [address], Ph. Attender: Will Golden MD [facility] Medical 04/12/2020 12:00:00 AM EST [place] ([facility]) Outpatient Attender: Will Golden MD 03/02/2020 09:54:00 AM EDT [facility] Outpatient Attender: Will Golden MD 02/04/2020 07:45:03 AM EDT [facility] Outpatient Attender: Will Golden MD [facility]03[facility] Med[facility] Brand Name Start Date Product Form Dose Route Admi nistrative Instructions Pharmacy Instructions Status Indications Reaction Description Data Source(s) 8.6-2.1 mg 06/22/2020 12:00:00 AM EST tablet, sublingual 14 PLACE ONE TABLET UNDER THE TONGUE EVERY DAY MAXIMUM DAILY DOSE = 1 PLACE ONE TABLET UNDER THE TONGUE EVERY DAY MAXIMUM DAILY DOSE = 1 SOLD: 06/22/2020 [facility] 8.6-2.1 mg 06/16/2020 12:00:00 AM EST tablet, sublingual 5 PLACE ONE TABLET UNDER THE TONGUE EVERY DAY MAXIMUM DAILY DOSE = [address] ONE TABLET UNDER THE TONGUE EVERY DAY MAXIMUM DAILY DOSE = 1 TABLET SOLD: 06/16/2020 [facility] Doxycycline Monohydrate 100 MG Oral Caps ule doxycycline monohydrate 100 mg capsule TK 1 C PO BID FOR 7 DAYS doxycycline monohydrate 100 mg capsule T K 1 C PO BID FOR 7 DAYS completed doxycycline monohydrate 100 MG Oral Capsule [facility]) Doxycycline Monohydrate 100 MG Oral Caps ule doxycycline monohydrate 100 mg capsule TK 1 C PO BID FOR 7 DAYS doxycycline monohydrate 100 mg capsule T K 1 C PO BID FOR 7 DAYS completed doxycycline monohydrate 100 MG Oral Capsule [place] ([facility]) Doxycycline Monohydrate 100 MG Oral Caps ule doxycycline monohydrate 100 mg capsule TK 1 C PO BID FOR 7 DAYS doxycycline monohydrate 100 mg capsule T K 1 C PO BID FOR 7 DAYS completed doxycycline monohydrate 100 MG Oral Capsule [place] ([facility]) Doxycycline Monohydrate 100 MG Oral Caps ule doxycycline monohydrate 100 mg capsule TK 1 C PO BID FOR 7 DAYS doxycycline monohydrate 100 mg capsule T K 1 C PO BID FOR 7 DAYS completed doxycycline monohydrate 100 MG Oral Capsule [place] ([facility]) Doxycycline Monohydrate 100 MG Oral Caps ule doxycycline monohydrate 100 mg capsule TK 1 C PO BID FOR 7 DAYS doxycycline monohydrate 100 mg capsule T K 1 C PO BID FOR 7 DAYS completed doxycycline monohydrate 100 MG Oral Capsule [place] ([facility]) Doxycycline Monohydrate 100 MG Oral Caps ule doxycycline monohydrate 100 mg capsule TK 1 C PO BID FOR 7 DAYS doxycycline monohydrate 100 mg capsule T K 1 C PO BID FOR 7 DAYS completed doxycycline monohydrate 100 MG Oral Capsule [place] ([facility]) Doxycycline Monohydrate 100 MG Oral Caps ule doxycycline monohydrate 100 mg capsule TK 1 C PO BID FOR 7 DAYS doxycycline monohydrate 100 mg capsule T K 1 C PO BID FOR 7 DAYS completed doxycycline monohydrate 100 MG Oral Capsule [place] ([facility]) Doxycycline Monohydrate 100 MG Oral Caps ule doxycycline monohydrate 100 mg capsule TK 1 C PO BID FOR 7 DAYS doxycycline monohydrate 100 mg capsule T K 1 C PO BID FOR 7 DAYS completed doxycycline monohydrate 100 MG Oral Capsule [place] ([facility]) Doxycycline Monohydrate 100 MG Oral Caps ule doxycycline monohydrate 100 mg capsule TK 1 C PO BID FOR 7 DAYS doxycycline monohydrate 100 mg capsule T K 1 C PO BID FOR 7 DAYS completed doxycycline monohydrate 100 MG Oral Capsule [place] ([facility]) Insurance Providers Payer name Policy type / Coverage type Policy ID Covered libertarian ID Covered libertarian's relationship to gibson Policy Gibson Plan Information [facility] Part B [id number] Family Dependent 5 [id number] [facility] Part [id number] Family Dependent BS [employer] Commercial [id number] Self [id number] [place] [employer] Commercial [id number] Self [id number] [place] [employer] [id number] Self 802 [place] [employer] Commercial [id number] Self [id number] [place] [employer] Commercial Safety Net Ehp [id number] Self Safety Net Ehp [place] [employer] Commercial [id number] Self [id number] [facility] Community Plan Commercial [id number] Self [id number] [facility] Community Plan Commercial [id number] Self Managed Care - [facility] Community Plan P [id number] S [id number] Medicaid S [id number] S [id number] [facility] Health Maintenance Organization (HMO) [id number] Self [id number] [facility] Health Maintenance Organization (O) [id number] Self [id number] [facility] Medicaid Medicaid [id number] Self [id number] [facility] Health Maintenance Organization (HMO) [id number] Self [id number] [facility] COMMUNITY PLAN MCDO [id number] SP [id number] [facility] COMMUNITY PLAN MCDO [id number] SP [id number] Formerly [facility] PLS Commercial [id number] Self [id number] [facility] Health Maintenance Organization (HMO) [id number] Self UN COMMUNITY PLAN MCDO [id number] SP [id number] SELF PAY UNAVAILABLE SP UNAVAILA BLE HMO BLUE [id number] SP [id number] SELF PAY SP UNAVAILABLE S UNAVAILA BLE Self Pay P [id number] S [id number] Self Pay P UNAVAILABLE S UNAVAILA BLE Managed Care - [facility] Community Plan P [id number] S [id number] SELF PAY ONLY [id number] SP [id number] [facility] COMMUNITY PLAN MCDO [id number] SP [id number] [facility] COMMUNITY PLAN MCDO [id number] SP [id number] SELF PAY ONLY [id number] SP [id number] [facility] Health Maintenance Organization (HMO) [id number] Self [id number] [facility] Health Maintenance Organization (HMO) [id number] Self [id number] [facility] Community [facility]/Ess PLS Commercial [id number] Self [id number] [facility] O [id number] S [id number] [facility] Maintenance Organization (HMO) [id number] Self [id number] Problems, Conditions, and Diagnoses Code Display Name Description Problem Type Effective Dates Data Source(s) [id number] Pain of left shoulder joint Pain of Left Shoul jaja Joint Problem 02/03/2020 12:00:00 AM EDT [place] ([facility]) [id number] Pain of left shoulder joint Pain of Left Shoul jaja Joint Problem 02/03/2020 12:00:00 AM EDT [place] ([facility]) [id number] Pain of left shoulder joint Pain of Left Shoul jaja Joint Problem 02/03/2020 12:00:00 AM EDT [place] ([facility]) [id number] Pain of left shoulder joint Pain of Left Shoul jaja Joint Problem 02/03/2020 12:00:00 AM EDT [place] ([facility]) [id number] Pain of left shoulder joint Pain of Left Shoul jaja Joint Problem 02/03/2020 12:00:00 AM EDT [place] ([facility]) [id number] Pain of left shoulder joint Pain of Left Shoul jaja Joint Problem 02/03/2020 12:00:00 AM EDT [place] ([facility]) [id number] Pain of left shoulder joint Pain of Left Shoul jaja Joint Problem 02/03/2020 12:00:00 AM EDT [place] ([facility]) [id number] Pain of left shoulder joint Pain of Left Shoul jaja Joint Problem 02/03/2020 12:00:00 AM EDT [place] ([facility]) [id number] Pain of left shoulder joint Pain of Left Shoul jaja Joint Problem 02/03/2020 12:00:00 AM EDT [place] ([facility]) Surgeries/Procedures No Information Results ID Date Data Source [id number] 01/25/2021 12:00:00 AM EDT [facility]) Name Value Range Interpretation Code Description Data Eli rce(s) Supporting Document(s) ID Date Data Source [id number] 12/28/2020 12:00:00 AM EDT [facility]) Name Value Range Interpretation Code Description Data Eli rce(s) Supporting Document(s) ID Date Data Source [id number] 12/28/2020 12:00:00 AM EDT [place] ([facility]) Name Value Range Interpretation Code Description Data Eli rce(s) Supporting Document(s) ID Date Data Source [id number] 09/27/2020 12:00:00 AM EDT [facility]) Name Value Range Interpretation Code Description Data Eli rce(s) Supporting Document(s) ID Date Data Source [id number] 09/27/2020 12:00:00 AM EDT [facility]) Name Value Range Interpretation Code Description Data Eli rce(s) Supporting Document(s) ID Date Data Source [id number] 09/27/2020 12:00:00 AM EDT [place] [facility]) Name Value Range Interpretation Code Description Data Eli rce(s) Supporting Document(s) ID Date Data Source [id number] 09/27/2020 12:00:00 AM EDT [place] ([facility]) Name Value Range Interpretation Code Description Data Eli rce(s) Supporting Document(s) ID Date Data Source [id number] 08/09/2020 08:21:00 PM EST [place] ([facility]) Name Value Range Interpretation Code Description Data Eli rce(s) Supporting Document(s) ID Date Data Source [id number] 08/09/2020 08:21:00 PM EST [place] ([facility]) Name Value Range Interpretation Code Description Data Eli rce(s) Supporting Document(s) ID Date Data Source [id number] 08/09/2020 08:21:00 PM EST [place] ([facility]) Name Value Range Interpretation Code Description Data Eli rce(s) Supporting Document(s) ID Date Data Source [id number] 08/09/2020 08:21:00 PM EST [place] ([facility]) Name Value Range Interpretation Code Description Data Eli rce(s) Supporting Document(s) ID Date Data Source [id number] 08/09/2020 08:21:00 PM EST [place] ([facility]) Name Value Range Interpretation Code Description Data Eli rce(s) Supporting Document(s) ID Date Data Source [id number] 07/12/2020 12:00:00 AM EST [facility]) Name Value Range Interpretation Code Description Data Eli rce(s) Supporting Document(s) ID Date Data Source [id number] 07/12/2020 12:00:00 AM EST [place] ([facility]) Name Value Range Interpretation Code Description Data Eli rce(s) Supporting Document(s) ID Date Data Source [id number] 07/12/2020 12:00:00 AM EST [place] ([facility]) Name Value Range Interpretation Code Description Data Eli rce(s) Supporting Document(s) ID Date Data Source [id number] 07/12/2020 12:00:00 AM EST [place] ([facility]) Name Value Range Interpretation Code Description Data Eli rce(s) Supporting Document(s) ID Date Data Source [id number] 07/12/2020 12:00:00 AM EST [place] ([facility]) Name Value Range Interpretation Code Description Data Eli rce(s) Supporting Document(s) Procedure Social History No Information Vital Signs ID Date Data Source [id number] Name Value Range Interpretation Code Description Data Source(s) Diastolic blood pressure 77 mm[Hg] 77 mm[Hg] [place] ([facility]) Body height 70 [in_i] 70 [in_i] [place] ([facility]) Body mass index (BMI) [Ratio] 30.5 kg/m2 30.5 k g/m2 [place] ([facility]) Systolic blood pressure 116 mm[Hg] 116 mm[Hg] [facility] ([facility]) Body weight 3396 [oz_av] 3396 [oz_av] [place] ([facility]) Body mass index (BMI) [Ratio] 30.9 kg/m2 30.9 k g/m2 [place] [facility] [facility] Systolic blood pressure 126 mm[Hg] 126 mm[Hg] A [facility] ([facility]) Body weight 3444 [oz_av] 3444 [oz_av] [facility] ([facility]) Diastolic blood pressure 79 mm[Hg] 79 mm[Hg] [facility] ([facility]) Body height 70 [in_i] 70 [in_i] [facility] ([facility]) Diastolic blood pressure 79 mm[Hg] 79 mm[Hg] [facility] ([facility]) Body height 70 [in_i] 70 [in_i] [facility] ([facility]) Body mass index (BMI) [Ratio] 30.9 kg/m2 30.9 k g/m2 [facility] ([facility]) Systolic blood pressure 126 mm[Hg] 126 mm[Hg] [facility] Body weight 3444 [oz_av] 3444 [oz_av] [facility] ([facility]) Diastolic blood pressure 75 mm[Hg] 75 mm[Hg] [facility] ([facility]) Body height 70 [in_i] 70 [in_i] [facility] ([facility]) Body mass index (BMI) [Ratio] 30.2 kg/m2 30.2 k g/m2 [facility] ([facility]) Systolic blood pressure 144 mm[Hg] 144 mm[Hg] [facility] ([facility]) Body weight 3368 [oz_av] 3368 [oz_av] [facility] ([facility]) Diastolic blood pressure 75 mm[Hg] 75 mm[Hg] [facility] ([facility]) Body height 70 [in_i] 70 [in_i] [facility] ([facility]) Body mass index (BMI) [Ratio] 30.2 kg/m2 30.2 k g/m2 [facility] ([facility]) Systolic blood pressure 144 mm[Hg] 144 mm[Hg] [facility] ([facility]) Body weight 3368 [oz_av] 3368 [oz_av] [facility] ([facility]) Diastolic blood pressure 75 mm[Hg] 75 mm[Hg] [facility] ([facility]) Body height 70 [in_i] 70 [in_i] [facility] ([facility]) Body mass index (BMI) [Ratio] 30.2 kg/m2 30.2 k g/m2 [facility] ([facility]) Systolic blood pressure 144 mm[Hg] 144 mm[Hg] [facility] ([facility]) Body weight 3368 [oz_av] 3368 [oz_av] [facility] ([facility]) Diastolic blood pressure 84 mm[Hg] 84 mm[Hg] [facility] ([facility]) Body height 70 [in_i] 70 [in_i] [facility] ([facility]) Body mass index (BMI) [Ratio] 29.8 kg/m2 29.8 k g/m2 [facility] ([facility]) Systolic blood pressure 120 mm[Hg] 120 mm[Hg] A [facility] ([facility]) Body weight 3328 [oz_av] 3328 [oz_av] [facility] ([facility]) Diastolic blood pressure 84 mm[Hg] 84 mm[Hg] [facility] ([facility]) Body height 70 [in_i] 70 [in_i] [facility] ([facility]) Body mass index (BMI) [Ratio] 29.8 kg/m2 29.8 k g/m2 [facility] ([facility]) Systolic blood pressure 120 mm[Hg] 120 mm[Hg] [facility] ([facility]) Body weight 3328 [oz_av] 3328 [oz_av] [facility] ([facility]) Diastolic blood pressure 84 mm[Hg] 84 mm[Hg] [facility] ([facility]) Body height 70 [in_i] 70 [in_i] [facility] ([facility]) Body mass index (BMI) [Ratio] 29.8 kg/m2 29.8 k g/m2 [facility] ([facility]) Systolic blood pressure 120 mm[Hg] 120 mm[Hg] [facility] ([facility]) Body weight 3328 [oz_av] 3328 [oz_av] [facility] ([facility]) Diastolic blood pressure 84 mm[Hg] 84 mm[Hg] [facility] ([facility]) Body height 70 [in_i] 70 [in_i] [facility] ([facility]) Body mass index (BMI) [Ratio] 29.8 kg/m2 29.8 k g/m2 [facility] ([facility]) Systolic blood pressure 120 mm[Hg] 120 mm[Hg] [facility] ([facility]) Body weight 3328 [oz_av] 3328 [oz_av] [facility] ([facility]) Diastolic blood pressure 78 mm[Hg] 78 mm[Hg] [facility] ([facility]) Body height 70 [in_i] 70 [in_i] [facility] ([facility]) Body mass index (BMI) [Ratio] 31.6 kg/m2 31.6 k g/m2 [facility] ([facility]) Systolic blood pressure 134 mm[Hg] 134 mm[Hg] [facility] Body weight 3526 [oz_av] 3526 [oz_av] [facility] ([facility]) Diastolic blood pressure 78 mm[Hg] 78 mm[Hg] [facility] ([facility]) Body height 70 [in_i] 70 [in_i] [facility] ([facility]) Body mass index (BMI) [Ratio] 31.6 kg/m2 31.6 k g/m2 [facility] ([facility]) Systolic blood pressure 134 mm[Hg] 134 mm[Hg] [facility] ([facility]) Body weight 3526 [oz_av] 3526 [oz_av] [facility] ([facility]) Diastolic blood pressure 78 mm[Hg] 78 mm[Hg] [facility] ([facility]) Body height 70 [in_i] 70 [in_i] [facility] ([facility]) Body mass index (BMI) [Ratio] 31.6 kg/m2 31.6 k g/m2 [facility] ([facility]) Systolic blood pressure 134 mm[Hg] 134 mm[Hg] [facility] ([facility]) Body weight 3526 [oz_av] 3526 [oz_av] [facility] ([facility]) Diastolic blood pressure 78 mm[Hg] 78 mm[Hg] [facility] ([facility]) Body height 70 [in_i] 70 [in_i] [facility] ([facility]) Body mass index (BMI) [Ratio] 31.6 kg/m2 31.6 k g/m2 [facility] ([facility]) Systolic blood pressure 134 mm[Hg] 134 mm[Hg] [facility] ([facility]) Body weight 3526 [oz_av] 3526 [oz_av] [facility] ([facility]) Diastolic blood pressure 78 mm[Hg] 78 mm[Hg] [facility] ([facility]) Body height 70 [in_i] 70 [in_i] [facility] ([facility]) Body mass index (BMI) [Ratio] 31.6 kg/m2 31.6 k g/m2 [facility] ([facility]) Systolic blood pressure 134 mm[Hg] 134 mm[Hg] [facility] ([facility]) Body weight 3526 [oz_av] 3526 [oz_av] [facility] ([facility]) Diastolic blood pressure 85 mm[Hg] 85 mm[Hg] [facility] ([facility]) Body height 70 [in_i] 70 [in_i] [facility] ([facility]) Body mass index (BMI) [Ratio] 32.1 kg/m2 32.1 k g/m2 [facility] ([facility]) Systolic blood pressure 126 mm[Hg] 126 mm[Hg] [facility] ([facility]) Body weight 3584 [oz_av] 3584 [oz_av] [facility] ([facility]) Diastolic blood pressure 85 mm[Hg] 85 mm[Hg] [facility] ([facility]) Body mass index (BMI) [Ratio] 32.1 kg/m2 32.1 k g/m2 [facility] ([facility]) Systolic blood pressure 126 mm[Hg] 126 mm[Hg] [facility] ([facility]) Body weight 3584 [oz_av] 3584 [oz_av] [facility] ([facility]) Body height 70 [in_i] 70 [in_i] [facility] ([facility]) Diastolic blood pressure 85 mm[Hg] 85 mm[Hg] [facility] ([facility]) Body height 70 [in_i] 70 [in_i] [facility] ([facility]) Body mass index (BMI) [Ratio] 32.1 kg/m2 32.1 k g/m2 [facility] ([facility]) Systolic blood pressure 126 mm[Hg] 126 mm[Hg] [facility] ([facility]) Body weight 3584 [oz_av] 3584 [oz_av] [facility] ([facility]) Diastolic blood pressure 85 mm[Hg] 85 mm[Hg] [facility] ([facility]) Body height 70 [in_i] 70 [in_i] [facility] ([facility]) Body mass index (BMI) [Ratio] 32.1 kg/m2 32.1 k g/m2 [facility] ([facility]) Systolic blood pressure 126 mm[Hg] 126 mm[Hg] [facility] Body weight 3584 [oz_av] 3584 [oz_av] [facility] ([facility]) Diastolic blood pressure 85 mm[Hg] 85 mm[Hg] [facility] ([facility]) Body height 70 [in_i] 70 [in_i] [facility] ([facility]) Body mass index (BMI) [Ratio] 32.1 kg/m2 32.1 k g/m2 [facility] ([facility]) Systolic blood pressure 126 mm[Hg] 126 mm[Hg] [facility] ([facility]) Body weight 3584 [oz_av] 3584 [oz_av] [facility] ([facility]) Diastolic blood pressure 69 mm[Hg] 69 mm[Hg] [facility] ([facility]) Body height 70 [in_i] 70 [in_i] [facility] ([facility]) Body mass index (BMI) [Ratio] 32.1 kg/m2 32.1 k g/m2 [facility] ([facility]) Systolic blood pressure 124 mm[Hg] 124 mm[Hg] [facility] ([facility]) Body weight 3584 [oz_av] 3584 [oz_av] [facility] ([facility]) Diastolic blood pressure 69 mm[Hg] 69 mm[Hg] [facility] ([facility]) Body height 70 [in_i] 70 [in_i] [facility] ([facility]) Body mass index (BMI) [Ratio] 32.1 kg/m2 32.1 k g/m2 [facility] ([facility]) Systolic blood pressure 124 mm[Hg] 124 mm[Hg] [facility] ([facility]) Body weight 3584 [oz_av] 3584 [oz_av] [facility] ([facility]) Diastolic blood pressure 69 mm[Hg] 69 mm[Hg] [facility] ([facility]) Body height 70 [in_i] 70 [in_i] [facility] ([facility]) Body mass index (BMI) [Ratio] 32.1 kg/m2 32.1 k g/m2 [facility] ([facility]) Systolic blood pressure 124 mm[Hg] 124 mm[Hg] [facility] ([facility]) Body weight 3584 [oz_av] 3584 [oz_av] [facility] ([facility]) Diastolic blood pressure 69 mm[Hg] 69 mm[Hg] [facility] ([facility]) Body height 70 [in_i] 70 [in_i] [facility] ([facility]) Body mass index (BMI) [Ratio] 32.1 kg/m2 32.1 k g/m2 [facility] ([facility]) Systolic blood pressure 124 mm[Hg] 124 mm[Hg] [facility] ([facility]) Body weight 3584 [oz_av] 3584 [oz_av] [facility] ([facility]) Diastolic blood pressure 69 mm[Hg] 69 mm[Hg] [facility] ([facility]) Body height 70 [in_i] 70 [in_i] [facility] ([facility]) Body mass index (BMI) [Ratio] 32.1 kg/m2 32.1 k g/m2 [facility] ([facility]) Systolic blood pressure 124 mm[Hg] 124 mm[Hg] [facility] ([facility]) Body weight 3584 [oz_av] 3584 [oz_av] [facility] ([facility]) Diastolic blood pressure 69 mm[Hg] 69 mm[Hg] [facility] ([facility]) Body height 70 [in_i] 70 [in_i] [facility] ([facility]) Body mass index (BMI) [Ratio] 32.1 kg/m2 32.1 k g/m2 [facility] ([facility]) Systolic blood pressure 124 mm[Hg] 124 mm[Hg] [facility] ([facility]) Body weight 3584 [oz_av] 3584 [oz_av] [facility] ([facility]) Body height 70 [in_i] 70 [in_i] [facility] ([facility]) Body mass index (BMI) [Ratio] 32.3 kg/m2 32.3 k g/m2 [facility] ([facility]) Systolic blood pressure 129 mm[Hg] 129 mm[Hg] [facility] Body weight 3600 [oz_av] 3600 [oz_av] [facility] ([facility]) Diastolic blood pressure 82 mm[Hg] 82 mm[Hg] [facility] ([facility]) Diastolic blood pressure 82 mm[Hg] 82 mm[Hg] [facility] ([facility]) Body height 70 [in_i] 70 [in_i] [facility] ([facility]) Body mass index (BMI) [Ratio] 32.3 kg/m2 32.3 k g/m2 [facility] ([facility]) Systolic blood pressure 129 mm[Hg] 129 mm[Hg] [facility] ([facility]) Body weight 3600 [oz_av] 3600 [oz_av] [facility] ([facility]) Diastolic blood pressure 82 mm[Hg] 82 mm[Hg] [facility] ([facility]) Body height 70 [in_i] 70 [in_i] [facility] ([facility]) Body mass index (BMI) [Ratio] 32.3 kg/m2 32.3 k g/m2 [facility] ([facility]) Systolic blood pressure 129 mm[Hg] 129 mm[Hg] [facility] ([facility]) Body weight 3600 [oz_av] 3600 [oz_av] [facility] ([facility]) Diastolic blood pressure 82 mm[Hg] 82 mm[Hg] [facility] ([facility]) Body height 70 [in_i] 70 [in_i] [facility] ([facility]) Body mass index (BMI) [Ratio] 32.3 kg/m2 32.3 k g/m2 [facility] ([facility]) Systolic blood pressure 129 mm[Hg] 129 mm[Hg] [facility] ([facility]) Body weight 3600 [oz_av] 3600 [oz_av] [facility] ([facility]) Diastolic blood pressure 82 mm[Hg] 82 mm[Hg] [facility] ([facility]) Body height 70 [in_i] 70 [in_i] [facility] ([facility]) Body mass index (BMI) [Ratio] 32.3 kg/m2 32.3 k g/m2 [facility] ([facility]) Systolic blood pressure 129 mm[Hg] 129 mm[Hg] [facility] Body weight 3600 [oz_av] 3600 [oz_av] [facility] ([facility]) Diastolic blood pressure 82 mm[Hg] 82 mm[Hg] [facility] ([facility]) Body height 70 [in_i] 70 [in_i] [facility] ([facility]) Body mass index (BMI) [Ratio] 32.3 kg/m2 32.3 k g/m2 [facility] ([facility]) Systolic blood pressure 129 mm[Hg] 129 mm[Hg] [facility] ([facility]) Body weight 3600 [oz_av] 3600 [oz_av] [facility] ([facility]) Diastolic blood pressure 82 mm[Hg] 82 mm[Hg] [facility] ([facility]) Body height 70 [in_i] 70 [in_i] [facility] ([facility]) Body mass index (BMI) [Ratio] 32.3 kg/m2 32.3 k g/m2 [facility] ([facility]) Systolic blood pressure 129 mm[Hg] 129 mm[Hg] [facility] ([facility]) Body weight 3600 [oz_av] 3600 [oz_av] [facility] ([facility]) Diastolic blood pressure 76 mm[Hg] 76 mm[Hg] [facility] ([facility]) Body height 70 [in_i] 70 [in_i] [facility] ([facility]) Body mass index (BMI) [Ratio] 31.9 kg/m2 31.9 k g/m2 [facility] ([facility]) Systolic blood pressure 114 mm[Hg] 114 mm[Hg] [facility] ([facility]) Body weight 3558.4 [oz_av] 3558.4 [oz_av] [facility] ([facility]) Diastolic blood pressure 76 mm[Hg] 76 mm[Hg] [facility] ([facility]) Body height 70 [in_i] 70 [in_i] [facility] ([facility]) Body mass index (BMI) [Ratio] 31.9 kg/m2 31.9 k g/m2 [facility] ([facility]) Systolic blood pressure 114 mm[Hg] 114 mm[Hg] [facility] ([facility]) Body weight 3558.4 [oz_av] 3558.4 [oz_av] [facility] ([facility]) Diastolic blood pressure 76 mm[Hg] 76 mm[Hg] [facility] ([facility]) Body height 70 [in_i] 70 [in_i] [facility] ([facility]) Body mass index (BMI) [Ratio] 31.9 kg/m2 31.9 k g/m2 [facility] ([facility]) Systolic blood pressure 114 mm[Hg] 114 mm[Hg] [facility] ([facility]) Body weight 3558.4 [oz_av] 3558.4 [oz_av] [facility] ([facility]) Diastolic blood pressure 76 mm[Hg] 76 mm[Hg] [facility] ([facility]) Body height 70 [in_i] 70 [in_i] [facility] ([facility]) Body mass index (BMI) [Ratio] 31.9 kg/m2 31.9 k g/m2 [facility] ([facility]) Systolic blood pressure 114 mm[Hg] 114 mm[Hg] [facility] ([facility]) Body weight 3558.4 [oz_av] 3558.4 [oz_av] [facility] ([facility]) Diastolic blood pressure 76 mm[Hg] 76 mm[Hg] [facility] ([facility]) Body height 70 [in_i] 70 [in_i] [facility] ([facility]) Body mass index (BMI) [Ratio] 31.9 kg/m2 31.9 k g/m2 [facility] ([facility]) Systolic blood pressure 114 mm[Hg] 114 mm[Hg] [facility] ([facility]) Body weight 3558.4 [oz_av] 3558.4 [oz_av] [facility] ([facility]) Body height 70 [in_i] 70 [in_i] [facility] ([facility]) Systolic blood pressure 114 mm[Hg] 114 mm[Hg] [facility] ([facility]) Body weight 3558.4 [oz_av] 3558.4 [oz_av] [facility] ([facility]) Diastolic blood pressure 76 mm[Hg] 76 mm[Hg] [facility] ([facility]) Body mass index (BMI) [Ratio] 31.9 kg/m2 31.9 k g/m2 [facility] ([facility]) Body mass index (BMI) [Ratio] 31.9 kg/m2 31.9 k g/m2 [facility] ([facility]) Diastolic blood pressure 76 mm[Hg] 76 mm[Hg] [facility] ([facility]) Body height 70 [in_i] 70 [in_i] [facility] ([facility]) Systolic blood pressure 114 mm[Hg] 114 mm[Hg] [facility] ([facility]) Body weight 3558.4 [oz_av] 3558.4 [oz_av] [facility] ([facility]) Diastolic blood pressure 76 mm[Hg] 76 mm[Hg] [facility] ([facility]) Body height 70 [in_i] 70 [in_i] [facility] ([facility]) Body mass index (BMI) [Ratio] 31.9 kg/m2 31.9 k g/m2 [facility] ([facility]) Systolic blood pressure 114 mm[Hg] 114 mm[Hg] [facility] ([facility]) Body weight 3558.4 [oz_av] 3558.4 [oz_av] [facility] ([facility]) Body height 70 [in_i] 70 [in_i] [facility] ([facility]) Body mass index (BMI) [Ratio] 32 kg/m2 32 kg/ m2 [facility] ([facility]) Body weight 3568 [oz_av] 3568 [oz_av] [facility] ([facility]) Body height 70 [in_i] 70 [in_i] [facility] ([facility]) Body mass index (BMI) [Ratio] 32 kg/m2 32 kg/ m2 [facility] ([facility]) Body weight 3568 [oz_av] 3568 [oz_av] [facility] ([facility]) Body height 70 [in_i] 70 [in_i] [facility] ([facility]) Body mass index (BMI) [Ratio] 32 kg/m2 32 kg/ m2 [facility] ([facility]) Body weight 3568 [oz_av] 3568 [oz_av] [facility] ([facility]) Body height 70 [in_i] 70 [in_i] [facility] ([facility]) Body mass index (BMI) [Ratio] 32 kg/m2 32 kg/ m2 [facility] ([facility]) Body weight 3568 [oz_av] 3568 [oz_av] [facility] ([facility]) Body height 70 [in_i] 70 [in_i] [facility] ([facility]) Body mass index (BMI) [Ratio] 32 kg/m2 32 kg/ m2 [facility] ([facility]) Body weight 3568 [oz_av] 3568 [oz_av] [facility] ([facility]) Body height 70 [in_i] 70 [in_i] [facility] ([facility]) Body mass index (BMI) [Ratio] 32 kg/m2 32 kg/ m2 [facility] ([facility]) Body weight 3568 [oz_av] 3568 [oz_av] [facility] ([facility]) Body height 70 [in_i] 70 [in_i] [facility] ([facility]) Body mass index (BMI) [Ratio] 32 kg/m2 32 kg/ m2 [facility] ([facility]) Body weight 3568 [oz_av] 3568 [oz_av] [facility] ([facility]) Body height 70 [in_i] 70 [in_i] [facility] ([facility]) Body mass index (BMI) [Ratio] 32 kg/m2 32 kg/ m2 [facility] ([facility]) Body weight 3568 [oz_av] 3568 [oz_av] [facility] ([facility]) Body height 70 [in_i] 70 [in_i] [facility] ([facility]) Body mass index (BMI) [Ratio] 32 kg/m2 32 kg/ m2 [facility] ([facility]) Body weight 3568 [oz_av] 3568 [oz_av] [facility] ([facility]) Diastolic blood pressure 82 mm[Hg] 82 mm[Hg] [facility] ([facility]) Body height 70 [in_i] 70 [in_i] [facility] ([facility]) Body weight 3452.8 [oz_av] 3452.8 [oz_av] [facility] ([facility]) Body mass index (BMI) [Ratio] 31.08 kg/m2 31.08 kg/m2 [facility] ([facility]) Systolic blood pressure 120 mm[Hg] 120 mm[Hg] A [facility] ([facility]) Diastolic blood pressure 82 mm[Hg] 82 mm[Hg] [facility] ([facility]) Body height 70 [in_i] 70 [in_i] [facility] ([facility]) Body mass index (BMI) [Ratio] 31.08 kg/m2 31.08 kg/m2 [facility] ([facility]) Systolic blood pressure 120 mm[Hg] 120 mm[Hg] [facility] ([facility]) Body weight 3452.8 [oz_av] 3452.8 [oz_av] [facility] ([facility]) Diastolic blood pressure 82 mm[Hg] 82 mm[Hg] [facility] ([facility]) Body height 70 [in_i] 70 [in_i] [facility] ([facility]) Body mass index (BMI) [Ratio] 31.08 kg/m2 31.08 kg/m2 [facility] ([facility]) Systolic blood pressure 120 mm[Hg] 120 mm[Hg] [facility] ([facility]) Body weight 3452.8 [oz_av] 3452.8 [oz_av] [facility] ([facility]) Diastolic blood pressure 82 mm[Hg] 82 mm[Hg] [facility] ([facility]) Body height 70 [in_i] 70 [in_i] [facility] ([facility]) Body mass index (BMI) [Ratio] 31.08 kg/m2 31.08 kg/m2 [facility] ([facility]) Systolic blood pressure 120 mm[Hg] 120 mm[Hg] [facility] Body weight 3452.8 [oz_av] 3452.8 [oz_av] [facility] ([facility]) Body mass index (BMI) [Ratio] 31.08 kg/m2 31.08 kg/m2 [facility] ([facility]) Systolic blood pressure 120 mm[Hg] 120 mm[Hg] [facility] ([facility]) Body weight 3452.8 [oz_av] 3452.8 [oz_av] [facility] ([facility]) Diastolic blood pressure 82 mm[Hg] 82 mm[Hg] [facility] ([facility]) Body height 70 [in_i] 70 [in_i] [facility] ([facility]) Diastolic blood pressure 73 mm[Hg] 73 mm[Hg] [facility] ([facility]) Body height 70 [in_i] 70 [in_i] [facility] ([facility]) Systolic blood pressure 114 mm[Hg] 114 mm[Hg] [facility] Body weight 3874.08 [oz_av] 3874.08 [oz_av] [facility] ([facility]) Body height 70 [in_i] 70 [in_i] [facility] ([facility]) Diastolic blood pressure 73 mm[Hg] 73 mm[Hg] [facility] ([facility]) Body mass index (BMI) [Ratio] 34.87 kg/m2 34.87 kg/m2 [facility] ([facility]) Systolic blood pressure 114 mm[Hg] 114 mm[Hg] [facility] Body weight 3874.08 [oz_av] 3874.08 [oz_av] [facility] ([facility]) Diastolic blood pressure 73 mm[Hg] 73 mm[Hg] [facility] ([facility]) Body weight 3874.08 [oz_av] 3874.08 [oz_av] [facility] ([facility]) Diastolic blood pressure 73 mm[Hg] 73 mm[Hg] [facility] ([facility]) Body height 70 [in_i] 70 [in_i] [facility] ([facility]) Systolic blood pressure 114 mm[Hg] 114 mm[Hg] [facility] Body height 70 [in_i] 70 [in_i] [facility] ([facility]) Systolic blood pressure 114 mm[Hg] 114 mm[Hg] [facility] Body weight 3874.08 [oz_av] 3874.08 [oz_av] [facility] ([facility]) Body mass index (BMI) [Ratio] 34.87 kg/m2 34.87 kg/m2 [facility] ([facility]) Diastolic blood pressure 73 mm[Hg] 73 mm[Hg] [facility] ([facility]) Body height 70 [in_i] 70 [in_i] AGUILA ([facility]) Systolic blood pressure 114 mm[Hg] 114 mm[Hg] [facility] Body weight 3874.08 [oz_av] 3874.08 [oz_av] ATH DHRUV ([facility]) Diastolic blood pressure 73 mm[Hg] 73 mm[Hg] AGUILA ([facility]) Body height 70 [in_i] 70 [in_i] AGUILA ([facility]) Systolic blood pressure 114 mm[Hg] 114 mm[Hg] A THENA ([facility]) Body weight 3874.08 [oz_av] 3874.08 [oz_av] ATH DHRUV ([facility]) Diastolic blood pressure 73 mm[Hg] 73 mm[Hg] AGUILA ([facility]) Body height 70 [in_i] 70 [in_i] AGUILA ([facility]) Body mass index (BMI) [Ratio] 34.87 kg/m2 34.87 kg/m2 AGUILA ([facility]) Systolic blood pressure 114 mm[Hg] 114 mm[Hg] [facility] Body weight 3874.08 [oz_av] 3874.08 [oz_av] ATH DHRUV ([facility]) Diastolic blood pressure 73 mm[Hg] 73 mm[Hg] AGUILA ([facility]) Body height 70 [in_i] 70 [in_i] AGUILA ([facility]) Body mass index (BMI) [Ratio] 34.87 kg/m2 34.87 kg/m2 AGUILA ([facility]) Systolic blood pressure 114 mm[Hg] 114 mm[Hg] A THENA ([facility]) Body weight 3874.08 [oz_av] 3874.08 [oz_av] ATH DHRUV ([facility]) Diastolic blood pressure 73 mm[Hg] 73 mm[Hg] AGUILA ([facility]) Body height 70 [in_i] 70 [in_i] AGUILA ([facility]) Body mass index (BMI) [Ratio] 34.87 kg/m2 34.87 kg/m2 AGUILA ([facility]) Systolic blood pressure 114 mm[Hg] 114 mm[Hg] A THENA ([facility]) Body weight 3874.08 [oz_av] 3874.08 [oz_av] ATH DHRUV ([facility]) Patient Treatment Plan of Care Planned Activity Planned Date Details Description Data Source (s) Doxycycline Monohydrate 100 MG Oral Capsule AGUILA ([facility]) Doxycycline Monohydrate 100 MG Oral Capsule AGUILA ([facility]) Doxycycline Monohydrate 100 MG Oral Capsule AGUILA ([facility]) Doxycycline Monohydrate 100 MG Oral Capsule AGUILA ([facility]) Doxycycline Monohydrate 100 MG Oral Capsule AGUILA ([facility]) Doxycycline Monohydrate 100 MG Oral Capsule AGUILA ([facility]) Doxycycline Monohydrate 100 MG Oral Capsule AGUILA ([facility]) Doxycycline Monohydrate 100 MG Oral Capsule AGUILA ([facility]) Doxycycline Monohydrate 100 MG Oral Capsule AGUILA ([facility])
== END 2021-03-24 15:15 | disposition left against medical advice (07) ==
LOC: M ED 14:38
DX: Z53.21 Procedure and treatment not carried out due to patient leaving prior to being seen by health care provider (principal)

== ENCOUNTER → 2022-04-07 | Outpatient (REF) | payer OTHER ==
[~2022-04-07] MED LIST changes: +DOXY-443; -DOXY1CAP62
[2022-04-07 14:45] LABS: BASO % 0.4 % (0.0-1.0); EOS # 0.2 10^3/uL (0.0-0.5); EOS % 2.5 % (0.0-3.0); HEMATOCRIT 43.4 % (42.0-52.0); HEMOGLOBIN 14.7 g/dl (13.5-17.5); LYMPH # 2.5 10^3/uL (1.5-5.0); LYMPH % 35.4 % (24.0-44.0); MEAN CORPUSCULAR HEMOGLOBIN 29.9 pg (27.0-33.0); MEAN CORPUSCULAR HGB CONC 33.9 g/dl (32.0-36.5); MEAN CORPUSCULAR VOLUME 88.4 fl (80.0-96.0); MONO # 0.6 10^3/uL (0.0-0.8); MONO % 7.7 % (2.0-8.0); NEUTROPHILS # 3.9 10^3/uL (1.5-8.5); NEUTROPHILS % 53.7 % (36.0-66.0); PLATELET COUNT, AUTOMATED 262 10^3/uL (150-450); RED BLOOD COUNT 4.91 10^6/uL (4.30-6.10); WHITE BLOOD COUNT 7.2 10^3/uL (4.0-10.0)
[2022-04-07 15:34] LABS: ALBUMIN 4.2 GM/DL (3.2-5.2); ALT/SGPT 58 U/L (12-78); BILIRUBIN,TOTAL 0.3 MG/DL (0.2-1.0); BLOOD UREA NITROGEN 13 MG/DL (7-18); CALCIUM LEVEL 9.4 MG/DL (8.5-10.1); CARBON DIOXIDE LEVEL 28 MEQ/L (21-32); CHLORIDE LEVEL 104 MEQ/L (98-107); CHOLESTEROL LEVEL 143 MG/DL (<200); CHOLESTEROL RISK RATIO 2.698 (<5); GLOMERULAR FILTRATION RATE > 60.0 (>60); GLUCOSE, FASTING 104 MG/DL (70-100); HDL CHOLESTEROL 53 MG/DL (>40); LDL CHOLESTEROL 77 MG/DL (<100); NON-HDL-C 90 MG/DL; POTASSIUM SERUM 4.9 MEQ/L (3.5-5.1); SODIUM LEVEL 136 MEQ/L (136-145); TOTAL PROTEIN 7.8 GM/DL (6.4-8.2); TRIGLYCERIDES LEVEL 63 MG/DL (<150)
[2022-04-07 15:58] LABS: HEMOGLOBIN A1c 5.1 %
== END ==
LOC: M LAB REF 12:53
PROVIDERS: ATTEND Nurse Practitioner Family
DX: Z00.00 Encounter for general adult medical examination without abnormal findings (principal)

== ENCOUNTER → 2022-08-24 | Outpatient (REF) | payer OTHER | LOC: M LAB REF 17:27 | PROVIDERS: ATTEND Surgery | DX: L72.0 Epidermal cyst (principal) ==

== ENCOUNTER → 2024-05-28 | Outpatient (REF) | payer OTHER ==
[~2024-05-28] MED LIST changes: +DOXY-441; -DOXY-443; -NEOM1SOL13; +NEOM1SOL21
== END ==
LOC: M LAB REF 16:50
PROVIDERS: ATTEND Surgery
DX: L72.3 Sebaceous cyst (principal)

== ENCOUNTER → 2024-08-12 | Outpatient (REF) | payer OTHER ==
[~2024-08-12] MED LIST changes: +CORTOTSO; -NEOM1SOL21
[2024-08-12 15:44] LABS: PSA SCREENING 0.36 NG/ML (< 4.00)
[2024-08-12 15:48] LABS: THYROID STIMULATING HORMONE 0.862 uIU/ML (0.55-4.78)
[2024-08-12 15:49] LABS: ALBUMIN 4.1 G/DL (3.2-5.2); ALKALINE PHOSPHATASE 44 U/L (40-129); ALT/SGPT 50 U/L (7.0-40); AST/SGOT 44 U/L (<34); BILIRUBIN,TOTAL 0.6 MG/DL (0.3-1.2); BLOOD UREA NITROGEN 17 MG/DL (9-23); CALCIUM LEVEL 9.4 MG/DL (8.5-10.1); CARBON DIOXIDE LEVEL 30 MMOL/L (20-31); CHLORIDE LEVEL 105 MMOL/L (98-107); CHOLESTEROL LEVEL 148 MG/DL (<200); CHOLESTEROL RISK RATIO 2.64 (<5); CREATININE FOR GFR 0.79 MG/DL (0.70-1.30); GLOMERULAR FILTRATION RATE > 60.0 (>60); GLUCOSE, FASTING 92 MG/DL (60-100); POTASSIUM SERUM 4.2 MMOL/L (3.5-5.1); SODIUM LEVEL 140 MMOL/L (136-145); TOTAL PROTEIN 7.1 G/DL (5.7-8.2); TRIGLYCERIDES LEVEL 60 MG/DL (<150)
== END ==
LOC: M LAB REF 13:09
PROVIDERS: ATTEND Family Medicine Addiction Medicine
DX: R10.2 Pelvic and perineal pain (principal); Z68.32 Body mass index [BMI] 32.0-32.9, adult

== ENCOUNTER → 2025-04-02 | Outpatient (REF) | payer OTHER ==
[2025-04-02 17:20] LABS: APPEARANCE, URINE CLEAR (CLEAR); BACTERIA, URINE AUTO NEGATIVE (NEGATIVE); BILIRUBIN, URINE AUTO NEGATIVE (NEGATIVE); BLOOD, URINE BLOOD NEGATIVE (NEGATIVE); GLUCOSE, URINE (UA) AUTO NEGATIVE (NEGATIVE); KETONE, URINE AUTO NEGATIVE (NEGATIVE); LEUKOCYTE ESTERASE, URINE AUTO NEGATIVE (NEGATIVE); MUCUS, URINE SMALL (NEGATIVE); NITRITE, URINE AUTO NEGATIVE (NEGATIVE); PROTEIN, URINE AUTO NEGATIVE (NEGATIVE); RBC, URINE AUTO 0 /HPF (0-3); SPECIFIC GRAVITY URINE AUTO 1.008 (1.002-1.035); SQUAMOUS EPITHELIAL CELL UR AU 0 /HPF (0-6); UROBILINOGEN, URINE AUTO 0.2 mg/dL (0.0-2.0); WBC, URINE AUTO 0 /HPF (0-3)
== END ==
LOC: M SMT 16:44
PROVIDERS: ATTEND Nurse Practitioner Family
DX: R10.20 Pelvic and perineal pain unspecified side (principal)

== ENCOUNTER → 2025-05-27 | Outpatient (CLI) | payer OTHER ==
[2025-05-27 13:37] LABS: BASO # 0.0 10^3/uL (0.0-0.2); BASO % 0.4 % (0.0-1.0); EOS # 0.2 10^3/uL (0.0-0.5); EOS % 2.0 % (0.0-3.0); LYMPH # 2.5 10^3/uL (1.5-5.0); LYMPH % 33.3 % (24.0-44.0); MONO # 0.6 10^3/uL (0.0-0.8); MONO % 7.2 % (2.0-8.0); NEUTROPHILS # 4.3 10^3/uL (1.5-8.5); NEUTROPHILS % 56.8 % (36.0-66.0); PLATELET COUNT, AUTOMATED 260 10^3/uL (150-450)
[2025-05-27 14:08] LABS: ALT/SGPT 37 U/L (7.0-40); AST/SGOT 29 U/L (<34); CALCIUM LEVEL 9.4 MG/DL (8.5-10.1); CARBON DIOXIDE LEVEL 32 MMOL/L (20-31); CHLORIDE LEVEL 100 MMOL/L (98-107); CREATININE FOR GFR 0.80 MG/DL (0.70-1.30); GLOMERULAR FILTRATION RATE > 90.0 (>60); POTASSIUM SERUM 4.6 MMOL/L (3.5-5.1); SODIUM LEVEL 140 MMOL/L (136-145)
== END ==
LOC: M EKG 09:06
PROVIDERS: ATTEND Family Medicine Addiction Medicine
DX: R00.1 Bradycardia, unspecified (principal); R17 Unspecified jaundice; R94.31 Abnormal electrocardiogram [ECG] [EKG]